=== PATIENT | male | born 1930 | race Caucasian/White ===

== ENCOUNTER 2016-11-23 09:01 | Inpatient (IN) ==
--- NOTE | 2016-11-23 09:10 | Emergency Department Report ---
Fever HPI - General Chief Complaint: Fever Stated Complaint: fever Time Seen by Provider: 11/23/16 09:10 Source: EMS Mode of arrival: EMS Limitations: altered mental status - History of Present Illness HPI Narrative: Patient is an 86-year-old male severe dementia. Patient brought to the ER for evaluation of fever, altered mental status. Patient began acting confused yesterday, today patient was known to be significantly altered, was noted to have a fever of 100.7. EMS was called, patient was brought to the ER for evaluation. Patient either very confused or significant dementia, unknown baseline at this time patient only states I don't know when asked any questions MD complaint: fever, malaise Temperature Source: oral - Related Data Home Medications Medication Instructions Recorded Confirmed Fluorouracil 5% Cream [Efudex 5% 1 applic TOP BID #40 gm 12/31/15 11/23/16 Cream] Previous Rx's Medication Instructions Recorded Acetaminophen Supp [Tylenol Supp] 650 mg GA Q5H PRN supp 11/30/16 Acetaminophen [Tylenol] 1,000 mg PO Q5H PRN tablet 11/30/16 Aspirin [ASA] 325 mg PO DAILY tablet 11/30/16 Atorvastatin [Lipitor] 40 mg PO HS tablet 11/30/16 Losartan [Cozaar] 50 mg PO DAILY tablet 11/30/16 Metoprolol Tartrate [Lopressor] 100 mg PO BIDWM tablet 11/30/16 Allergies Allergy/AdvReac Type Severity Reaction Status Date / Time No Known Allergies Allergy Unknown Unverified 11/23/16 09:04 Review of Systems Limitations: ROS unobtainable due to patient's medical condition (patient baseline dementia, with fever current response I don't know to every question) PFSH Patient Stated Medical History Cerebrovascular Accident Yes: previous "light stroke" 2010 Dementia Yes Cataracts Yes Cardiac Arrhythmia Yes Hypertension Yes Diabetes Mellitus Type 2 Yes Hx Incontinence Yes Hx Urinary Tract Infection Yes Physical Exam - General General appearance: alert, in no apparent distress - Eye Eye exam: Present: EOMI - ENT ENT exam: Present: normal oropharynx, mucous membranes dry. Absent: mucous membranes moist - Neck Neck exam: Present: trachea midline. Absent: tenderness - Chest Chest inspection: Present: symmetric chest wall rise. Absent: tenderness, rash - Respiratory Respiratory exam: Present: normal lung sounds bilaterally. Absent: respiratory distress, wheezes, stridor - Cardiovascular Cardiovascular exam: Present: regular rate, normal rhythm, normal heart sounds - Abdominal Exam Abdominal exam: Present: soft, normal bowel sounds. Absent: distention, tenderness - Back Exam Back exam: Present: full ROM - Skin Skin exam: Present: warm, dry - Neurological Exam Neurological exam: Present: alert, other (patient grossly normal, however significant dementia unknown baseline) Course Vital Signs Temperature 98.7 F 11/23/16 09:12 Pulse Rate 71 11/23/16 09:12 Respiratory Rate 20 11/23/16 09:12 Blood Pressure 198/76 H 11/23/16 09:12 Pulse Oximetry 98 11/23/16 09:12 Temperature 96.9 F 11/30/16 08:38 Pulse Rate 66 11/30/16 08:38 Respiratory Rate 16 11/30/16 08:38 Blood Pressure 157/78 H 11/30/16 08:38 Pulse Oximetry 96 11/30/16 08:38 Fever - Differential Diagnosis Likely: cellulitis, fever of unknown origin, gastroenteritis, community acquired pneumonia, pyelonephritis, sepsis, influenza - Medical Records Attestation: I reviewed the patient's medical records. - Lab Data Attestation: I reviewed the patient's lab results. Result diagrams: 11/30/16 06:31 11/30/16 06:31 Lab Results 11/23/16 11/23/16 11/23/16 Range/Units 09:39 09:39 09:40 WBC 11.7 H (4.5-11.0) T/MM3 RBC 5.03 (4.50-5.90) M/MM3 Hgb 14.4 (13.5-17.5) GM/DL Hct 44.8 (41-53) % MCV 89.1 (80-100) UM3 MCH 28.6 (26-34) UUG MCHC 32.1 (31-37) GM/DL RDW Std Deviation 44.2 (36.9-50.2) FL Plt Count 181 (130-400) T/MM3 MPV 9.9 (9.4-12.4) UM3 Immature Gran % (Auto) 0.1 (0.0-0.5) % Neut % (Auto) 76.4 H (33-66) % Lymph % (Auto) 13.2 L (23-45) % [facility] % (Auto) 8.7 (0-9.0) % Eos % (Auto) 1.3 (0-4) % Baso % (Auto) 0.3 (0-2) % Neut # 8.9 H (1.8-7.7) T/MM3 Lymph # 1.5 (1-4.8) T/MM3 [facility] # 1.0 H (0-0.8) T/MM3 Eos # 0.2 (0-0.5) T/MM3 Baso # 0.0 (0-0.2) T/MM3 Abs Immat Gran (auto) 0.01 (0.00-0.03) T/MM3 Turbidity < 20 (0-20) Sodium 147 H (134-144) MEQ/L Potassium 4.5 (3.6-5) MEQ/L Chloride 110 H (98-107) MEQ/L Carbon Dioxide 26 (22-30) MEQ/L Anion Gap 11 (5-15) MEQ/L BUN 24.0 H (9-20) MG/DL Creatinine 1.8 H (0.8-1.5) MG/DL GFR Calculation 36 BUN/Creatinine Ratio 13 (6-26) RATIO Glucose 149 H (75-110) MG/DL Glucometer (65-110) mg/dL Calculated Osmolality 289 H (261-280) MOSM/KG Calcium 8.9 (8.4-10.2) MG/DL Total Bilirubin 1.90 H (0.20-1.30) MG/DL Icterus Index < 2 (0-7) AST 25 (17-59) U/L ALT 27 (21-72) U/L Alkaline Phosphatase 52 (38-126) U/L Troponin I 0.072 (0-0.12) ng/ml Total Protein 7.4 (6.3-8.2) G/DL Albumin 3.8 (3.5-5.0) G/DL Globulin 3.6 (2.4-3.6) G/DL Albumin/Globulin Ratio 1.1 (1.1-2.2) RATIO Plasma Lactate 1.2 (0.6-2.2) MMOL/L Procalcitonin 0.21 NG/ML Specimen Hemolysis < 15 (0-25) Ur Collection Type Urine Color (YELLOW) Urine Clarity Urine pH (5.0-8.0) Ur Specific [place] (1.015-1.025) Urine Protein (NEGATIVE) Urine Glucose (UA) (NEGATIVE) Urine Ketones (NEGATIVE) Urine Occult Blood (NEGATIVE) Urine Nitrate (NEGATIVE) Urine Bilirubin (NEGATIVE) Urine Urobilinogen (NORMAL) EU/DL Ur Leukocyte Esterase (NEGATIVE) Urine RBC (0-3) /HPF Urine WBC (0-5) /HPF Amorphous Sediment Urine Bacteria (NEGATIVE) Ur Culture Indicated? 11/23/16 11/23/16 11/23/16 Range/Units 09:50 13:59 14:56 WBC (4.5-11.0) T/MM3 RBC (4.50-5.90) M/MM3 Hgb (13.5-17.5) GM/DL Hct (41-53) % MCV (80-100) UM3 MCH (26-34) UUG MCHC (31-37) GM/DL RDW Std Deviation (36.9-50.2) FL Plt Count (130-400) T/MM3 MPV (9.4-12.4) UM3 Immature Gran % (Auto) (0.0-0.5) % Neut % (Auto) (33-66) % Lymph % (Auto) (23-45) % [facility] % (Auto) (0-9.0) % Eos % (Auto) (0-4) % Baso % (Auto) (0-2) % Neut # (1.8-7.7) T/MM3 Lymph # (1-4.8) T/MM3 [facility] # (0-0.8) T/MM3 Eos # (0-0.5) T/MM3 Baso # (0-0.2) T/MM3 Abs Immat Gran (auto) (0.00-0.03) T/MM3 Turbidity (0-20) Sodium (134-144) MEQ/L Potassium (3.6-5) MEQ/L Chloride (98-107) MEQ/L Carbon Dioxide (22-30) MEQ/L Anion Gap (5-15) MEQ/L BUN (9-20) MG/DL Creatinine (0.8-1.5) MG/DL GFR Calculation BUN/Creatinine Ratio (6-26) RATIO Glucose (75-110) MG/DL Glucometer 128 (65-110) mg/dL Calculated Osmolality (261-280) MOSM/KG Calcium (8.4-10.2) MG/DL Total Bilirubin (0.20-1.30) MG/DL Icterus Index (0-7) AST (17-59) U/L ALT (21-72) U/L Alkaline Phosphatase (38-126) U/L Troponin I (0-0.12) ng/ml Total Protein (6.3-8.2) G/DL Albumin (3.5-5.0) G/DL Globulin (2.4-3.6) G/DL Albumin/Globulin Ratio (1.1-2.2) RATIO Plasma Lactate 1.9 (0.6-2.2) MMOL/L Procalcitonin NG/ML Specimen Hemolysis (0-25) Ur Collection Type Urine, catheter Urine Color Yellow (YELLOW) Urine Clarity Clear Urine pH 5.5 (5.0-8.0) Ur Specific [place] 1.025 (1.015-1.025) Urine Protein 1+ A (NEGATIVE) Urine Glucose (UA) Negative (NEGATIVE) Urine Ketones Negative (NEGATIVE) Urine Occult Blood 3+ A (NEGATIVE) Urine Nitrate Negative (NEGATIVE) Urine Bilirubin Negative (NEGATIVE) Urine Urobilinogen 0.2 (NORMAL) EU/DL Ur Leukocyte Esterase Negative (NEGATIVE) Urine RBC 20-30 H (0-3) /HPF Urine WBC None seen (0-5) /HPF Amorphous Sediment Moderate Urine Bacteria Trace H (NEGATIVE) Ur Culture Indicated? Cult not indicated 11/23/16 11/24/16 11/24/16 Range/Units 20:07 04:30 04:30 WBC 12.4 H (4.5-11.0) T/MM3 RBC 4.42 L (4.50-5.90) M/MM3 Hgb 12.7 L D (13.5-17.5) GM/DL Hct 39.6 L D (41-53) % MCV 89.6 (80-100) UM3 MCH 28.7 (26-34) UUG MCHC 32.1 (31-37) GM/DL RDW Std Deviation 42.6 (36.9-50.2) FL Plt Count 164 (130-400) T/MM3 MPV 10.2 (9.4-12.4) UM3 Immature Gran % (Auto) 0.2 (0.0-0.5) % Neut % (Auto) 78.6 H (33-66) % Lymph % (Auto) 12.6 L (23-45) % [facility] % (Auto) 7.8 (0-9.0) % Eos % (Auto) 0.6 (0-4) % Baso % (Auto) 0.2 (0-2) % Neut # 9.8 H (1.8-7.7) T/MM3 Lymph # 1.6 (1-4.8) T/MM3 [facility] # 1.0 H (0-0.8) T/MM3 Eos # 0.1 (0-0.5) T/MM3 Baso # 0.0 (0-0.2) T/MM3 Abs Immat Gran (auto) 0.02 (0.00-0.03) T/MM3 Turbidity < 20 (0-20) Sodium 140 D (134-144) MEQ/L Potassium 4.4 (3.6-5) MEQ/L Chloride 109 H (98-107) MEQ/L Carbon Dioxide 23 (22-30) MEQ/L Anion Gap 8 (5-15) MEQ/L BUN 20.0 (9-20) MG/DL Creatinine 1.5 D (0.8-1.5) MG/DL GFR Calculation 44 BUN/Creatinine Ratio 13 (6-26) RATIO Glucose 132 H (75-110) MG/DL Glucometer 129 (65-110) mg/dL Calculated Osmolality 274 (261-280) MOSM/KG Calcium 8.4 (8.4-10.2) MG/DL Total Bilirubin (0.20-1.30) MG/DL Icterus Index < 2 (0-7) AST (17-59) U/L ALT (21-72) U/L Alkaline Phosphatase (38-126) U/L Troponin I (0-0.12) ng/ml Total Protein (6.3-8.2) G/DL Albumin (3.5-5.0) G/DL Globulin (2.4-3.6) G/DL Albumin/Globulin Ratio (1.1-2.2) RATIO Plasma Lactate (0.6-2.2) MMOL/L Procalcitonin NG/ML Specimen Hemolysis < 15 (0-25) Ur Collection Type Urine Color (YELLOW) Urine Clarity Urine pH (5.0-8.0) Ur Specific [place] (1.015-1.025) Urine Protein (NEGATIVE) Urine Glucose (UA) (NEGATIVE) Urine Ketones (NEGATIVE) Urine Occult Blood (NEGATIVE) Urine Nitrate (NEGATIVE) Urine Bilirubin (NEGATIVE) Urine Urobilinogen (NORMAL) EU/DL Ur Leukocyte Esterase (NEGATIVE) Urine RBC (0-3) /HPF Urine WBC (0-5) /HPF Amorphous Sediment Urine Bacteria (NEGATIVE) Ur Culture Indicated? 11/24/16 11/24/16 11/24/16 Range/Units 06:02 10:46 14:52 WBC (4.5-11.0) T/MM3 RBC (4.50-5.90) M/MM3 Hgb (13.5-17.5) GM/DL Hct (41-53) % MCV (80-100) UM3 MCH (26-34) UUG MCHC (31-37) GM/DL RDW Std Deviation (36.9-50.2) FL Plt Count (130-400) T/MM3 MPV (9.4-12.4) UM3 Immature Gran % (Auto) (0.0-0.5) % Neut % (Auto) (33-66) % Lymph % (Auto) (23-45) % [facility] % (Auto) (0-9.0) % Eos % (Auto) (0-4) % Baso % (Auto) (0-2) % Neut # (1.8-7.7) T/MM3 Lymph # (1-4.8) T/MM3 [facility] # (0-0.8) T/MM3 Eos # (0-0.5) T/MM3 Baso # (0-0.2) T/MM3 Abs Immat Gran (auto) (0.00-0.03) T/MM3 Turbidity (0-20) Sodium (134-144) MEQ/L Potassium (3.6-5) MEQ/L Chloride (98-107) MEQ/L Carbon Dioxide (22-30) MEQ/L Anion Gap (5-15) MEQ/L BUN (9-20) MG/DL Creatinine (0.8-1.5) MG/DL GFR Calculation BUN/Creatinine Ratio (6-26) RATIO Glucose (75-110) MG/DL Glucometer 131 108 166 (65-110) mg/dL Calculated Osmolality (261-280) MOSM/KG Calcium (8.4-10.2) MG/DL Total Bilirubin (0.20-1.30) MG/DL Icterus Index (0-7) AST (17-59) U/L ALT (21-72) U/L Alkaline Phosphatase (38-126) U/L Troponin I (0-0.12) ng/ml Total Protein (6.3-8.2) G/DL Albumin (3.5-5.0) G/DL Globulin (2.4-3.6) G/DL Albumin/Globulin Ratio (1.1-2.2) RATIO Plasma Lactate (0.6-2.2) MMOL/L Procalcitonin NG/ML Specimen Hemolysis (0-25) Ur Collection Type Urine Color (YELLOW) Urine Clarity Urine pH (5.0-8.0) Ur Specific [place] (1.015-1.025) Urine Protein (NEGATIVE) Urine Glucose (UA) (NEGATIVE) Urine Ketones (NEGATIVE) Urine Occult Blood (NEGATIVE) Urine Nitrate (NEGATIVE) Urine Bilirubin (NEGATIVE) Urine Urobilinogen (NORMAL) EU/DL Ur Leukocyte Esterase (NEGATIVE) Urine RBC (0-3) /HPF Urine WBC (0-5) /HPF Amorphous Sediment Urine Bacteria (NEGATIVE) Ur Culture Indicated? - Radiology Data Attestation: I reviewed the patient's radiology results. - EKG Data EKG #1 EKG attestation: Yes: I reviewed and interpreted this EKG. EKG shows normal: sinus rhythm Rate: normal Rhythm: NSR [place]/QRS: normal Heart block present: 1st Degree Interpretation: no acute changes Disposition Clinical Impression: CVA (cerebral vascular accident) Qualifiers: CVA mechanism: occlusion Precerebral and cerebral artery: middle cerebral artery Laterality of affected vessel: right Qualified Code(s): I63.511 - Cerebral infarction due to unspecified occlusion or stenosis of right middle cerebral artery Disposition: [facility] [place] Condition: Stable - Seen By: physician
[2016-11-23] MEDS ORDERED: CEFEPIME 1 GM in NS 100 ML IV ONE (09:12)
[2016-11-23] MEDS ORDERED: NS 1,000 ML IV ONE (09:12)
--- NOTE | 2016-11-23 10:29 | XRay Report ---
EXAM: XR chest 1V LOCATION OF DICTATION: [place] HISTORY: fever, confusion, rule out sepsis COMPARISON: No prior studies available for comparison. FINDINGS: The heart size is normal. Tortuous and ectatic appearing thoracic aorta. The mediastinal configuration is within normal limits. Limited depth of inspiration with elevation of the left hemidiaphragm. There are no consolidating opacities or pleural effusions. There is no pneumothorax. The osseous structures are within normal limits for the patient's age. IMPRESSION: 1. Heart size is within normal limits. 2. Limited depth of inspiration with basilar atelectasis. No consolidating opacities. .
--- NOTE | 2016-11-23 10:37 | CT Scan Report ---
EXAM: CT head/brain wo con LOCATION OF DICTATION: [place] HISTORY: acutely altered mental status COMPARISON: Compared to the prior CT head dated August 22, 2009. TECHNIQUE: Axial CT images through the head were performed without contrast. Iterative Reconstruction dose reducing technique was utilized. FINDINGS: The ventricles and sulci are prominent compatible with age-related atrophy. Encephalomalacia within the right occipital lobe compatible with chronic cerebrovascular accident as demonstrated in the CT head and August 2009. Encephalomalacia within the left cerebellar hemisphere suggesting chronic ischemic insult as well. There is area of low attenuation within the right parietal cortex suggesting subacute to chronic infarct. Slightly hyperdense right MCA could indicate underlying thrombus. There is a prominent Virchow-Bebeto space in the left basal ganglia region. There is no significant midline shift or mass effect. Basilar cisterns are patent. The paranasal sinuses and mastoid air are clear. Globes and orbits are normal. No intraparenchymal or extra-axial hemorrhage. IMPRESSION: 1. Encephalomalacia about the right occipital lobe compatible chronic cerebrovascular accident. Encephalomalacia within the left cerebellar hemisphere also suggestive of a chronic cerebrovascular accident. 2. Area of low-attenuation with the right parietal cortex may indicate subacute to chronic infarct. Clinical correlation recommended. 3. Slightly hyperdense right MCA could indicate underlying thrombus. .
--- NOTE | 2016-11-23 12:16 | Magnetic Resonance Report ---
EXAM: MR head/brain wo con LOCATION OF DICTATION: [place] HISTORY: question right parietal stroke COMPARISON: No prior studies available for comparison. TECHNIQUE: Multiplanar, multisequence, MR imaging of the head with and without contrast was acquired. Contrast: 15 mL of Multihance FINDINGS: The ventricles and sulci are prominent compatible with age-related cerebral atrophy. There is a large area of restricted diffusion within the right parietal cortex compatible with a acute to subacute right MCA distribution infarct. Gradient echo images demonstrate areas of susceptibility artifact suggestive of hemosiderin. In addition there are a few small foci demonstrating restricted diffusion within the right basal ganglia region and the left posterior frontal subcortical white matter suggesting shower emboli. Flow voids are maintained within the major dural venous sinuses and [place] without obvious right MCA distribution thrombus. Impression: 1. Large area of restricted diffusion within the right parietal cortex MCA distribution compatible with acute/subacute infarct. There are few areas of susceptibility artifact/hemosiderin suggesting small hemorrhagic components. 2. There are a few small foci of restricted diffusion compatible with acute infarcts within the right basal ganglia and left posterior frontal subcortical white matter suggesting shower emboli. 3. Age-related atrophy. 4. Flow voids are maintained in the [place]. No evidence for right MCA distribution thrombus. IMPRESSION: Unremarkable MRI of the head for the patient's age with and without contrast. .
--- NOTE | 2016-11-23 13:40 | History & Physical Report ---
<Kymberly Venegas V - Last Filed: 11/23/16 13:36> History of Present Illness Date: 11/23/16 Chief complaint: CVA HPI: Patient is a 86 yr old male who was brought to the emergency room today for acute evaluation of altered mentation. Patient has a known history of significant dementia. However, he is does reside at home with his . His reported that he started to become increasingly confused yesterday morning at approximately 3 a.m. This confusion continued into today, at which time she contacted her children further assistance. Unable to get patient to obey commands or stand, so they contacted EMS and patient was brought to the emergency room for further evaluation and treatment. Basic laboratory studies were obtained as patient's was concerned about a possible fever. Patient's white count was found to be 11.7, hemoglobin 14.4, hematocrit 44.8, platelet count 181, neutrophils 76%. Chemistry panel reviewed. Sodium is elevated at 147 , potassium 4.5, BUN 24, creatinine 1.8, glucose 149. Total bilirubin 1.9. Troponin 0.072, venous lactate 1.2, pro calcitonin 0.21. A catheterized urine sample was obtained showing 1+ protein, 3+ blood, 20-30 RBCs with trace bacteria. Max temperature in the emergency room was 100.1, heart rate in the 60s. Patient has been hypertensive, 170s-190s systolic. A chest x-ray was obtained. No acute cardiopulmonary findings. Initially a CT scan of the brain is obtained that does reveal encephalomalacia in the right occipital lobe, likely chronic from prior ischemic event. Questionable area in the right MCA that his concern for thrombus. An MRI of the brain was then obtained that did reveal a large area of restricted diffusion in the right MCA, likely representing an acute infarct. There are also multiple small areas of acute infarcts. Given acute mental status, accompanied with weakness and findings of cerebral infarct. The hospitalist services were contacted and accepted patient for outpatient admission for further evaluation and treatment. It is expected that his stay will be less than 2 overnights. Patient is seen while in the emergency room with and daughters at his bedside. He is living with his eyes closed. He will answer verbally. When called by name. He will also answer questions with yes and no or I don't know however, will not follow specific commands. When asked to open his eyes. He states "no". It is difficult evaluate if this is acute altered mentation versus chronic dementia. Just in great detail with family at the bedside regarding their wishes for ongoing care. They all verbalized patient is a do not resuscitate. Discussed plan of care. Did discuss events or activities with family and they wish for patient to be a do not resuscitate Review of Systems ROS unobtainable: due to mental status PFSH Dementia Type II diabetes, next line, hypertension Hx CVA Cataracts. History of urinary incontinence Surgical History: Bilateral carpal tunnel release-1996. Skin cancer removal- 2005. 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 Skin cancer removals-2007, 2008. Tonsillectomy. Left cataract extraction with lens in [place]-2008. Colonoscopy-2004, 2006, 2007 Family History: Father-diabetes, heart disease Mother-breast cancer - Social History Smoking status: Never smoker Substance use type: does not use Alcohol intake frequency: does not drink Household members: spouse Current residence: Apartment/Private Home Social history: PCP Dr Lebron Medications Home Medications Medication Instructions Recorded Confirmed Type Losartan Potassium [Cozaar] 100 mg PO DAILY #0 11/24/09 11/23/16 History Metoprolol Succinate 200 mg PO DAILY #0 11/24/09 11/23/16 History Fluorouracil 5% Cream [Efudex 5% 1 applic TOP BID #40 gm 12/31/15 11/23/16 History Cream] Allergies Allergy/AdvReac Type Severity Reaction Status Date / Time No Known Allergies Allergy Unknown Unverified 11/23/16 09:04 Exam Vital Signs: Temperature 98.5 F 11/23/16 12:45 Pulse Rate 65 11/23/16 13:20 Respiratory Rate 20 11/23/16 12:45 Blood Pressure 185/71 H 11/23/16 13:20 Pulse Oximetry 95 11/23/16 13:20 Oxygen Delivery Method Room Air Height: 1.7 m Weight: 67.3 kg - Constitutional Present: no acute distress, well nourished, well developed - Routine HEENT Exam ENT: Present: mucous membranes moist, dentition normal - Routine Neck Exam Present: full ROM - Routine Respiratory Exam Present: CTA bilaterally. Absent: wheezes - Routine Cardiovascular Exam Present: RRR, S1, S2, no murmur. Absent: murmur - Routine Abdominal Exam Present: soft, normoactive bowel sounds, non distended. Absent: tenderness - Routine Extremities Exam Present: normal capillary refill - Routine Skin Exam Present: intact, dry, warm - Routine Neurological Exam Present: alert, altered mental status Will not follow commands of Neurologic exam - Routine Psychiatric Exam Present: cooperative, unable to assess Results - Labs CBC & Chem 7: 11/23/16 09:39 11/23/16 09:40 Assessment and Plan (1) CVA (cerebral vascular accident) Current visit: Yes Status: Acute (2) Mental status change Current visit: Yes Status: Acute Assessment and Plan: Impression Acute CVA Altered mentation Hypernatremia Mild leukocytosis Elevated bilirubin Hypertension Type II diabetes History of CVA Cataracts Urinary incontinence Plan Patient to outpatient observation under the care of Dr. Shay for acute CVA and altered mentation. Place consultation with speech therapy to evaluate swallow to rule out dysphasia. Consultation for PT and OT to evaluate patients strength, weakness and deficits. Patient does reside at home and normally walks with a walker. Mild leukocytosis. No evidence of urinary tract infection or pneumonia. Will continue to monitor for evidence of acute process. Leukocytosis may be stress- induced. Noted creatinine to be 1.8, however, this does appear to be chronic. Last creatinine from 2016 was 1.8 Will give 1/2 NS at 100 ml/hr for gentle hydration Did discuss with patient's family. Patient may require further rehabilitation including penitentiary, IRU or group home placement. Depending on his ongoing deficits. Family does verify again, the patient is a do not resuscitate and this order is written. Will discuss further orders and plan of care with attending, Dr. Shay. At time of discharge medical care will return to primary care provider, Dr. Lebron Hospital Course Summary Disclaimer: The visit summary below is not to be considered part of the above Progress Note. Hospital Course: 11/23/16- Admission Impression Acute CVA Altered mentation Hypernatremia Mild leukocytosis Elevated bilirubin Hypertension Type II diabetes History of CVA Cataracts Urinary incontinence Plan Patient to outpatient observation under the care of Dr. Shay for acute CVA and altered mentation. Place consultation with speech therapy to evaluate swallow to rule out dysphasia. Consultation for PT and OT to evaluate patients strength, weakness and deficits. Patient does reside at home and normally walks with a walker. Mild leukocytosis. No evidence of urinary tract infection or pneumonia. Will continue to monitor for evidence of acute process. Leukocytosis may be stress- induced. Noted creatinine to be 1.8, however, this does appear to be chronic. Last creatinine from 2015 was 1.8 Will give 1/2 NS at 100 ml/hr for gentle hydration Did discuss with patient's family. Patient may require further rehabilitation including penitentiary, IRU or group home placement. Depending on his ongoing deficits. Family does verify again, the patient is a do not resuscitate and this order is written. Will discuss further orders and plan of care with attending, Dr. Shay. At time of discharge medical care will return to primary care provider, Dr. Lebron <Belle Shay - Last Filed: 11/23/16 18:03> History of Present Illness Date: 11/23/16 [facility] Patient Stated Medical History Cerebrovascular Accident Yes: previous "light stroke" 2009 Dementia Yes Cataracts Yes Cardiac Arrhythmia Yes Hypertension Yes Diabetes Mellitus Type 2 Yes Hx Incontinence Yes Hx Urinary Tract Infection Yes Exam Vital Signs: Temperature 99.1 F 11/23/16 16:00 Pulse Rate 69 11/23/16 16:00 Respiratory Rate 20 11/23/16 16:00 Blood Pressure 173/70 H 11/23/16 16:00 Pulse Oximetry 96 11/23/16 16:00 Oxygen Delivery Method Room Air Height: 5 ft 7 in Weight: 151 lb 0.266 oz Results - Labs CBC & Chem 7: 11/23/16 09:39 11/23/16 09:40 Assessment and Plan (1) CVA (cerebral vascular accident) Current visit: Yes Status: Acute (2) Mental status change Current visit: Yes Status: Acute Assessment and Plan: I have independently evaluated and examined this patient. I reviewed the chart, the patient's history, and the PACKING ROOM WORKER/PA's documented findings as above. We discussed and formulated the assessment and plan as above with additions as below. Informant is patient's family who is at his bedside, patient's chart, patient is able to answer a few questions but is not a reliable historian. The patient is an 86-year-old white male as outlined above with his reports that she woke up at 3:30 in the morning on Wednesday and noted that he was talking. She thought maybe he was having a bad dream. However he continued to remain confused, she noticed he was having difficulty eating, it should be noted he is left-handed. He usually is able to feed himself fairly well. Eventually she contacted her family, because the patient was unable to stand or follow commands he was brought in by EMS today. After an extensive evaluation in the emergency department, including a sepsis workup with blood cultures obtained in light of his leukocytosis. He underwent an MRI of the head which shows a large area of restricted diffusion within the right parietal cortex MCA distribution compatible with acute/subacute infarct. There were a few areas of susceptibility artifact/hemosiderin suggesting small hemorrhagic components. Are a few small foci of restricted diffusion compatible with acute infarcts within the right basal ganglia and left posterior frontal subcortical white matter suggesting showering emboli. The patient was admitted for outpatient observation due to acute CVA and altered mentation. Review of system: Difficult to obtain from the patient. The does describe he has dependent rubor when he is dangling his feet, perhaps worse in his left leg that has been going on for the recent past. In general, the patient awakens easily, and attempts to answer questions but his answers are somewhat vague. He is cooperative with exam, and in no respiratory distress. HEENT: Head is atraumatic, normocephalic, multiple healing skin cancers noted , left conjunctival erythema and injection with some distortion of the left lower lid, no oral thrush, mucous membranes dry, his lips are cracked and fissured. Lungs: Clear to auscultation CV: Regular rate and rhythm a blowing holosystolic murmur Abdomen: Soft, nontender, bowel sounds are present, there is no guarding no rebound. He does have a reducible incisional hernia to the right of his midline incision. She has strong bounding bilateral femoral pulses. Extremities: No edema, the left leg is mottled, with decreased dorsalis pedis pulse, purple changes to the nails,. His right leg is warm and dry with good palpable pulses and flare refill less than 2 seconds Skin: no sign of rash Neuro: Patient is resting quietly, arouses to questions but unable to follow any commands Impression: Acute CVA involving the right parietal cortex with small acute infarcts within the right basal ganglia and left posterior frontal subcortical white matter- with his murmur one would be concerned about endocarditis-blood cultures are pending at this time. If the blood cultures become positive will address further evaluation with the family. He did receive 1 dose of cefepime in the emergency department today. Plan as outlined above. Discussed DO NOT RESUSCITATE status with the family and they confirmed he is a DO NOT RESUSCITATE Hospital Course Summary Disclaimer: The visit summary below is not to be considered part of the above Progress Note.
[2016-11-23 14:04] VITALS: BMI 23.6
[2016-11-23] MEDS: 1/2 NS 1,000 ML IV SCH (14:26)
[2016-11-23] MEDS: SALINE FLUSH 10ml SYRINGE IVF PRN (14:27)
[2016-11-23] MEDS: --POM--LOSARTAN 100 MG TABLET PO SCH (16:36)
[2016-11-23] MEDS: METOPROLOL SUCCINATE (XL) 100mg TABLET PO SCH (16:37)
[2016-11-24] MEDS: 1/2 NS 1,000 ML IV SCH ×3 (00:33→20:45)
[2016-11-24] MEDS: --POM--LOSARTAN 100 MG TABLET PO SCH (12:24)
[2016-11-24] MEDS: METOPROLOL SUCCINATE (XL) 100mg TABLET PO SCH (12:25)
--- NOTE | 2016-11-24 13:54 | Progress Note ---
<Kymberly Venegas V - Last Filed: 11/24/16 13:48> Subjective: Mr Marlow is seen this morning while sleeping in the chair. He is resting with eyes closed and will not open them for examination. When asked questions. He will answer intermittently yes or no, however, not consistently. He does not appear to be in any acute distress. The pressures remain 170s systolic. Objective Vital signs: Temperature 96 F L 11/24/16 08:00 Pulse Rate 57 L 11/24/16 08:00 Respiratory Rate 16 11/23/16 23:58 Blood Pressure 171/66 H 11/24/16 08:00 Pulse Oximetry 96 11/24/16 08:00 Oxygen Delivery Method Room Air Height: 5 ft 7 in Weight: 151 lb 0.266 oz Body Mass Index: 23.6 - Constitutional Present: no acute distress, well nourished, well developed - Routine HEENT Exam Eye: Present: EOMI ENT: Present: mucous membranes moist, dentition normal - Routine Respiratory Exam Present: CTA bilaterally. Absent: wheezes - Routine Cardiovascular Exam Present: RRR, S1, S2, murmur - Routine Abdominal Exam Present: soft, normoactive bowel sounds, non distended. Absent: tenderness - Routine Extremities Exam Present: normal capillary refill - Routine Skin Exam Present: dry, warm - Routine Neurological Exam Present: altered mental status - Routine Lymphatic Exam Lymphatic: Absent: adenopathy - Routine Psychiatric Exam Present: normal affect Results - Labs CBC & Chem 7: 11/24/16 04:30 11/24/16 04:30 Assessment and Plan (1) CVA (cerebral vascular accident) Current visit: Yes Status: Acute (2) Mental status change Current visit: Yes Status: Acute Assessment and Plan: 11/24/16 Blood pressure remains mildly elevated in the 170's. Generally goal is to keep above 150. Will discuss with attending regarding adding Norvasc or increasing current regimen Blood cultures remain negative. Mild leukocytosis without any SIRS criteria. Awaiting for evaluation with therapy. Concerned that patient will not be able to return home Consult placed to IRU. Otherwise may need to consider snf or SNU placement Discussed with CM Sepsis Assessment - Evaluation Sepsis screening result: No Definite Risk Hospital Course Summary Disclaimer: The visit summary below is not to be considered part of the above Progress Note. Hospital Course: 11/23/16- Admission Impression Acute CVA Altered mentation Hypernatremia Mild leukocytosis Elevated bilirubin Hypertension Type II diabetes History of CVA Cataracts Urinary incontinence Plan Patient to outpatient observation under the care of Dr. Shay for acute CVA and altered mentation. Place consultation with speech therapy to evaluate swallow to rule out dysphasia. Consultation for PT and OT to evaluate patients strength, weakness and deficits. Patient does reside at home and normally walks with a walker. Mild leukocytosis. No evidence of urinary tract infection or pneumonia. Will continue to monitor for evidence of acute process. Leukocytosis may be stress- induced. Noted creatinine to be 1.8, however, this does appear to be chronic. Last creatinine from 2016 was 1.8 Will give 1/2 NS at 100 ml/hr for gentle hydration Did discuss with patient's family. Patient may require further rehabilitation including snf, IRU or snf placement. Depending on his ongoing deficits. Family does verify again, the patient is a do not resuscitate and this order is written. Will discuss further orders and plan of care with attending, Dr. Shay. At time of discharge medical care will return to primary care provider, Dr. Lebron 11/24/16 Blood pressure remains mildly elevated in the 170's. Generally goal is to keep above 150. Will discuss with attending regarding adding Norvasc or increasing current regimen Blood cultures remain negative. Mild leukocytosis without any SIRS criteria. Awaiting for evaluation with therapy. Concerned that patient will not be able to return home Consult placed to IRU. Otherwise may need to consider snf or SNU placement Discussed with CM <Belle Shay - Last Filed: 11/24/16 15:35> Objective Vital signs: Temperature 96 F L 11/24/16 08:00 Pulse Rate 60 11/24/16 14:10 Respiratory Rate 16 11/23/16 23:58 Blood Pressure 135/53 11/24/16 14:10 Pulse Oximetry 96 11/24/16 08:00 Results - Labs CBC & Chem 7: 11/24/16 04:30 11/24/16 04:30 Assessment and Plan (1) CVA (cerebral vascular accident) Current visit: Yes Status: Acute (2) Mental status change Current visit: Yes Status: Acute Assessment and Plan: I have independently evaluated and examined this patient. I reviewed the chart, the patient's history, and the SPORTS COORDINATOR/PA's documented findings as above. We discussed and formulated the assessment and plan as above with additions as below. The patient was able to open his eyes and respond to questions today. In general, the patient is alert and , cooperative with exam, and in no respiratory distress. HEENT: Head is atraumatic, normocephalic, no conjunctival petechiae, no oral thrush, mucous membranes are moist and pink. Lungs: Clear to auscultation without wheezes, crackles or rhonchi CV: Regular rate and rhythm with systolic murmur Abdomen: Soft, nontender, bowel sounds are present, there is no guarding no rebound. Extremities: No clubbing, no cyanosis, no edema. Left foot is slightly mottled diminished pulse Skin: Warm and dry no sign of rash Neuro: Patient opens eye, is unable to follow commands Repeat blood pressure after taking his meds as 135/53-will continue his home blood pressure meds Discussed with case management manager at the patient is being evaluated for IRU today Discussed with patient's and daughter Hospital Course Summary Disclaimer: The visit summary below is not to be considered part of the above Progress Note.
[2016-11-25] MEDS: 1/2 NS 1,000 ML IV SCH ×3 (07:14→17:46)
[2016-11-25] MEDS: --POM--LOSARTAN 100 MG TABLET PO SCH (09:16)
[2016-11-25] MEDS: METOPROLOL SUCCINATE (XL) 100mg TABLET PO SCH (09:16)
--- NOTE | 2016-11-25 12:22 | Progress Note ---
Subjective: The patient was seen in his room earlier this morning. At that time no family was present. He would respond to voice and stated he felt okay. He opened his mouth on command. He would not open his eyes when requested to do so. He could not answer any other questions for me. His nurse stated that they had a hard time getting him to take his pills or eat this morning but a family member was able to get him to take his pills and eat a few bites of food and a couple of drinks. When I returned later this morning the patient's was present and the speech therapist was present. The patient was refusing to take anything orally by the speech therapist. The patient's eyes were still closed and he was sitting up in his chair and appeared comfortable. He was later undergoing occupational therapy but continued to keep his eyes closed. Objective Vital signs: Temperature 99.0 F 11/25/16 08:00 Pulse Rate 52 L 11/25/16 11:23 Respiratory Rate 18 11/25/16 08:00 Blood Pressure 160/50 H 11/25/16 09:14 Pulse Oximetry 99 11/25/16 08:00 Oxygen Delivery Method Room Air Weight: 71.7 kg - Constitutional Comments: I&O 2965/965 Telemetry shows sinus rhythm with mild bradycardia and heart rate in the 50s. Telemetry initiated today. GEN-sleeping upright in a chair. Response to verbal stimuli. No agitation HEENT-the patient keeps his eyes closed and will not open them to command and will not allow them to be opened passively. Oropharynx is moist CV-regular rate and rhythm with a loud 4/6 systolic murmur CHEST-clear to auscultation bilaterally ABD-soft, nontender, he has a reducible large abdominal wall hernia that is nontender, positive bowel sounds -Damon in place with fair urine output EXT-SCDs on, mild erythema to the bilateral shins, trace edema NEURO-squeezes both hands on command with strength of 4+ over 5 bilaterally. The patient will not move his legs on command SKIN-warm and dry. No rashes. Mild erythema to the bilateral shins likely chronic Results - Labs CBC & Chem 7: 11/24/16 04:30 11/24/16 04:30 Assessment and Plan (1) CVA (cerebral vascular accident) Current visit: Yes Status: Acute (2) Mental status change Current visit: Yes Status: Acute Assessment and Plan: Dr. Monreal-11/25/2016 Large right parietal ischemic CVA with possible small hemorrhagic component. Few small scattered acute ischemic strokes in the right basal ganglia and left posterior frontal subcortical white matter suggesting shower emboli Dementia Diabetes Poor by mouth intake since admission Dysphagia Hypertension Chronic kidney disease Low-grade fever (blood cultures negative 2 days, UA negative on admission, and chest x-ray without consolidation.) Bibasilar atelectasis on admission chest x-ray Plan I talked to the patient's and one of his daughters here in the hospital and spoke to another daughter by phone. I updated them on the patient's condition. I discussed current options for workup of his stroke. They're not wanting aggressive care but are in agreement with carotid Dopplers and echocardiogram. We'll start aspirin and Lipitor. The patient apparently had been on warfarin in the past but it was discontinued sometime last year. He may be a candidate for resuming warfarin for his acute embolic appearing stroke. Will await echocardiogram and carotid Dopplers. Usually one would wait at least 10 days to start Coumadin after a large stroke if it is indicated. My other concern is that the patient's by mouth intake is very poor and he is requiring IV fluids for hydration. Family would like to continue with IV fluids while we continue supportive care and try to encourage by mouth intake. If over the next couple of days oral intake is not improving then we will need to discuss further options. Monitor on telemetry. EDITH Damon. It appears this was placed in the emergency room. I cannot find any notes indicating urinary retention. We'll check a CBC and basic metabolic profile today and tomorrow. Neuro checks every 8 hours Patient was reportedly not a candidate for inpatient rehabilitation. Family would like him to go to intermediate if he improves over the next couple of days. Greater than 1 hour of time spent seeing and evaluating the patient, reviewing the chart, talking with family and coordinating the care plan. Sepsis Assessment - Evaluation Sepsis screening result: No Definite Risk Hospital Course Summary Disclaimer: The visit summary below is not to be considered part of the above Progress Note. Hospital Course: 11/23/16- Admission Impression Acute CVA Altered mentation Hypernatremia Mild leukocytosis Elevated bilirubin Hypertension Type II diabetes History of CVA Cataracts Urinary incontinence Plan Patient to outpatient observation under the care of Dr. Shay for acute CVA and altered mentation. Place consultation with speech therapy to evaluate swallow to rule out dysphasia. Consultation for PT and OT to evaluate patients strength, weakness and deficits. Patient does reside at home and normally walks with a walker. Mild leukocytosis. No evidence of urinary tract infection or pneumonia. Will continue to monitor for evidence of acute process. Leukocytosis may be stress- induced. Noted creatinine to be 1.8, however, this does appear to be chronic. Last creatinine from 2016 was 1.8 Will give 1/2 NS at 100 ml/hr for gentle hydration Did discuss with patient's family. Patient may require further rehabilitation including intermediate, IRU or fpc placement. Depending on his ongoing deficits. Family does verify again, the patient is a do not resuscitate and this order is written. Will discuss further orders and plan of care with attending, Dr. Shay. At time of discharge medical care will return to primary care provider, Dr. Lebron 11/24/16 Blood pressure remains mildly elevated in the 170's. Generally goal is to keep above 150. Will discuss with attending regarding adding Norvasc or increasing current regimen Blood cultures remain negative. Mild leukocytosis without any SIRS criteria. Awaiting for evaluation with therapy. Concerned that patient will not be able to return home Consult placed to IRU. Otherwise may need to consider fpc or SNU placement Discussed with CM 11/24/2016 I have independently evaluated and examined this patient. I reviewed the chart, the patient's history, and the REHAB AIDE/PA's documented findings as above. We discussed and formulated the assessment and plan as above with additions as below. The patient was able to open his eyes and respond to questions today. In general, the patient is alert and , cooperative with exam, and in no respiratory distress. HEENT: Head is atraumatic, normocephalic, no conjunctival petechiae, no oral thrush, mucous membranes are moist and pink. Lungs: Clear to auscultation without wheezes, crackles or rhonchi CV: Regular rate and rhythm with systolic murmur Abdomen: Soft, nontender, bowel sounds are present, there is no guarding no rebound. Extremities: No clubbing, no cyanosis, no edema. Left foot is slightly mottled diminished pulse Skin: Warm and dry no sign of rash Neuro: Patient opens eye, is unable to follow commands Repeat blood pressure after taking his meds as 135/53-will continue his home blood pressure meds Discussed with renal case manager at the patient is being evaluated for IRU today Discussed with patient's and daughter
[2016-11-25] MEDS: ATORVASTATIN 40 MG TABLET PO SCH ×3 (13:27→23:21)
[2016-11-25] MEDS: ASPIRIN 325 MG TABLET PO SCH (13:27)
--- NOTE | 2016-11-25 14:13 | Ultrasound Report ---
Indication: bilateral ischemic cva PROCEDURE: US carotid doppler BI: Encounter: Initial Comparison: None Technique: Duplex interrogation of the sonographically accessible carotid vertebral arteries was performed. With grayscale and color flow imaging, mild intimal thickening and plaque formation is seen. On the right, the ICA/CCA ratio is 0.7 with a maximum peak systolic velocity of 78 cm/s. Diastolic velocities are under 10 cm/s. On the left, the IC/CC ratio is 0.7. Maximum peak systolic velocity of the left internal carotid artery is 90 cm/s although does have a high resistive pattern upon spectral analysis. Mild spectral broadening. Antegrade vertebral artery flow on the right. Left vertebral artery not sonographically accessible. There is question of some flow reversal the common carotid arteries but this is not definitive. Impression: 1. ICA/CCA ratios another Doppler evidence does not demonstrate evidence of hemodynamic significant stenosis. 2. High resistive waveforms of the left internal carotid artery of indeterminate significance. 3. Antegrade vertebral flow on the right; the left is not evaluated. Recommendation: CT angiography of the neck. .
[2016-11-26] MEDS: 1/2 NS 1,000 ML IV SCH ×3 (06:44→21:21)
[2016-11-26] MEDS ORDERED: 1/2 NS 1,000 ML IV SCH (07:26)
[2016-11-26] MEDS: METOPROLOL SUCCINATE (XL) 100mg TABLET PO SCH (11:43)
[2016-11-26] MEDS: ASPIRIN 325 MG TABLET PO SCH ×2 (11:43→12:12)
[2016-11-26] MEDS: --POM--LOSARTAN 100 MG TABLET PO SCH (11:43)
[2016-11-26] MEDS: CEFTRIAXONE 1 G in NS 100 ML IV SCH (15:02)
--- NOTE | 2016-11-26 15:45 | Progress Note ---
Subjective: The patient was seen today in his room accompanied by his , daughter and one granddaughter. He is sitting in a chair with his eyes closed. He occasionally will make a verbal response such as yes or no, but for the most part does not respond to questions. He keeps his eyes closed and does not open them on request. He does not follow any commands. He does not appear to be in distress. He is eating very poorly, only a few bites this morning with his medications. He still has his Damon in place. His states that last night before she left he had his eyes open and had a conversation with her. He states he asked where everybody went and asked what was going on. He has had some low- grade fevers off and on. Objective Vital signs: Temperature 97.7 F 11/26/16 09:38 Pulse Rate 93 11/26/16 09:38 Respiratory Rate 20 11/26/16 09:38 Blood Pressure 184/52 H 11/26/16 09:38 Pulse Oximetry 93 11/26/16 09:38 Oxygen Delivery Method Room Air Weight: 70.2 kg - Constitutional Comments: GEN-minimally responsive, sitting up in a chair, no acute distress HEENT-eyes are closed and he will not allow me to open them, oropharynx is moist NECK-supple CV-regular rate and rhythm CHEST-clear to auscultation bilaterally ABD-soft, nontender with positive bowel sounds -Damon in place with good urine output EXT-no edema, feet are cold to touch but pulses are present NEURO-patient is minimally responsive, overall, about the same as yesterday SKIN-skin is warm except for feet which are cool to touch Results - Labs CBC & Chem 7: 11/26/16 04:39 11/26/16 04:39 Microbiology Results: Microbiology 11/26/16 13:56 Peripheral/Iv Start Blood Culture - Preliminary Culture Initiated - Results Pending 11/26/16 13:31 Peripheral/Iv Start Blood Culture - Preliminary Culture Initiated - Results Pending - Imaging and Cardiology Chest x-ray Status: image reviewed by me Additional comments: Chest x-ray today on my read shows no significant change from 11/23/2016. Poor inspiration and basilar atelectasis Carotid Dopplers Impression: 1. ICA/CCA ratios another Doppler evidence does not demonstrate evidence of hemodynamic significant stenosis. 2. High resistive waveforms of the left internal carotid artery of indeterminate significance. 3. Antegrade vertebral flow on the right; the left is not evaluated. Recommendation: CT angiography of the neck. Assessment and Plan (1) CVA (cerebral vascular accident) Current visit: Yes Status: Acute (2) Mental status change Current visit: Yes Status: Acute Assessment and Plan: Dr. Monreal-11/26/2016 Impression Large right parietal ischemic CVA with possible small hemorrhagic component. Few small scattered acute ischemic strokes in the right basal ganglia and left posterior frontal subcortical white matter suggesting shower emboli Low-grade fever with mild leukocytosis -white count remains mildly elevated without significant immature white cells. Urinalysis was repeated and shows no signs of infection. Blood cultures were negative after 3 days and blood cultures were repeated today 2. Chest x-ray on my read shows no obvious infiltrates but will await radiology determination. Rocephin 1 g IV daily started empirically to see if his confusion will improve with treatment of possible infection Loud systolic murmur -echocardiogram is pending Dementia Diabetes Poor by mouth intake since admission Dysphagia Hypertension Chronic kidney disease-mild increasing creatinine after restarting losartan Abnormal carotid Dopplers as above-CTA for further evaluation recommended by radiology, but family does not want this procedure at this time Plan Regarding acute bilateral strokes, possibly embolic we'll continue on aspirin and statin for now. Echocardiogram is pending. Family does not want to pursue abnormalities seen on carotid Dopplers at this time. Regarding altered mental status, family would like to continue supportive care including IV fluids at this time and see if the patient improves. Regarding low-grade fever and elevated white count, uncertain if he has an infection versus aspiration or atelectasis contributing to his fever. Blood cultures were repeated and Rocephin initiated empirically. With the patient's loud cardiac murmur and low-grade fever and possible embolic stroke, this is somewhat concerning for endocarditis. Monitor on telemetry. EDITH Damon. It appears this was placed in the emergency room. I cannot find any notes indicating urinary retention. We'll check a CBC and basic metabolic profile again tomorrow Neuro checks every 8 hours Sepsis Assessment - Evaluation Sepsis screening result: Sepsis Risk Hospital Course Summary Disclaimer: The visit summary below is not to be considered part of the above Progress Note. Hospital Course: 11/23/16- Admission Impression Acute CVA Altered mentation Hypernatremia Mild leukocytosis Elevated bilirubin Hypertension Type II diabetes History of CVA Cataracts Urinary incontinence Plan Patient to outpatient observation under the care of Dr. Shay for acute CVA and altered mentation. Place consultation with speech therapy to evaluate swallow to rule out dysphasia. Consultation for PT and OT to evaluate patients strength, weakness and deficits. Patient does reside at home and normally walks with a walker. Mild leukocytosis. No evidence of urinary tract infection or pneumonia. Will continue to monitor for evidence of acute process. Leukocytosis may be stress- induced. Noted creatinine to be 1.8, however, this does appear to be chronic. Last creatinine from 2015 was 1.8 Will give 1/2 NS at 100 ml/hr for gentle hydration Did discuss with patient's family. Patient may require further rehabilitation including nursing home, IRU or senior living placement. Depending on his ongoing deficits. Family does verify again, the patient is a do not resuscitate and this order is written. Will discuss further orders and plan of care with attending, Dr. Shay. At time of discharge medical care will return to primary care provider, Dr. Lebron 11/24/16 Blood pressure remains mildly elevated in the 170's. Generally goal is to keep above 150. Will discuss with attending regarding adding Norvasc or increasing current regimen Blood cultures remain negative. Mild leukocytosis without any SIRS criteria. Awaiting for evaluation with therapy. Concerned that patient will not be able to return home Consult placed to IRU. Otherwise may need to consider senior living or SNU placement Discussed with CM 11/24/2016 I have independently evaluated and examined this patient. I reviewed the chart, the patient's history, and the RADIO STATION OPERATOR/PA's documented findings as above. We discussed and formulated the assessment and plan as above with additions as below. The patient was able to open his eyes and respond to questions today. In general, the patient is alert and , cooperative with exam, and in no respiratory distress. HEENT: Head is atraumatic, normocephalic, no conjunctival petechiae, no oral thrush, mucous membranes are moist and pink. Lungs: Clear to auscultation without wheezes, crackles or rhonchi CV: Regular rate and rhythm with systolic murmur Abdomen: Soft, nontender, bowel sounds are present, there is no guarding no rebound. Extremities: No clubbing, no cyanosis, no edema. Left foot is slightly mottled diminished pulse Skin: Warm and dry no sign of rash Neuro: Patient opens eye, is unable to follow commands Repeat blood pressure after taking his meds as 135/53-will continue his home blood pressure meds Discussed with casey saw operator at the patient is being evaluated for IRU today Discussed with patient's and daughter Dr. Monreal-11/25/2016 Impression Large right parietal ischemic CVA with possible small hemorrhagic component. Few small scattered acute ischemic strokes in the right basal ganglia and left posterior frontal subcortical white matter suggesting shower emboli Dementia Diabetes Poor by mouth intake since admission Dysphagia Hypertension Chronic kidney disease Low-grade fever (blood cultures negative 2 days, UA negative on admission, and chest x-ray without consolidation.) Bibasilar atelectasis on admission chest x-ray Plan I talked to the patient's and one of his daughters here in the hospital and spoke to another daughter by phone. I updated them on the patient's condition. I discussed current options for workup of his stroke. They're not wanting aggressive care but are in agreement with carotid Dopplers and echocardiogram. We'll start aspirin and Lipitor. The patient apparently had been on warfarin in the past but it was discontinued sometime last year. He may be a candidate for resuming warfarin for his acute embolic appearing stroke. Will await echocardiogram and carotid Dopplers. Usually one would wait at least 10 days to start Coumadin after a large stroke if it is indicated. My other concern is that the patient's by mouth intake is very poor and he is requiring IV fluids for hydration. Family would like to continue with IV fluids while we continue supportive care and try to encourage by mouth intake. If over the next couple of days oral intake is not improving then we will need to discuss further options. Monitor on telemetry. EDITH Damon. It appears this was placed in the emergency room. I cannot find any notes indicating urinary retention. We'll check a CBC and basic metabolic profile today and tomorrow. Neuro checks every 8 hours Patient was reportedly not a candidate for inpatient rehabilitation. Family would like him to go to nursing home if he improves over the next couple of days. Greater than 1 hour of time spent seeing and evaluating the patient, reviewing the chart, talking with family and coordinating the care plan.
--- NOTE | 2016-11-26 17:20 | XRay Report ---
Indication: fever PROCEDURE: XR chest 1V: Encounter: Initial Comparison: 11/23/2016 Findings: This exam is slightly more expiratory nature than most recent prior. There is some increase in left basilar atelectasis. There is a moderately tortuous descending thoracic aorta. There is mild prominence of the cardiac silhouette which may be accentuated by the AP portable technique. Trachea is midline. There is fullness in the upper mediastinum which is probably vascular. Impression: Increasing left basilar atelectasis, with overall expiratory technique. Follow-up to resolution is recommended. .
--- NOTE | 2016-11-26 17:23 | Echocardiogram ---
DATE OF PROCEDURE November 25, 2016. This is a two-dimensional echo with spectral Doppler, color-flow and M-mode. It was obtained in a patient with CVA. Left atrial dimension appears to be normal. Left ventricular end-diastolic dimension is normal. Left ventricular wall thickness is normal. LV systolic function is normal with ejection fraction of 55%. Right atrium is normal. Right ventricle is normal. Aortic root dimension is normal. Mitral valve annulus is calcified. Mitral valve leaflets are normal with trace of mitral regurgitation. Aortic valve shows fibrocalcific changes with no stenosis. Mild aortic insufficiency is present. Tricuspid valve shows trace of tricuspid regurgitation. Pulmonary valve shows no pulmonary insufficiency. There is no pericardial effusion. IMPRESSION 1. Technically difficult study. 2. Grossly, no intracardiac thrombus or mass. 3. Normal LV systolic function with ejection fraction of 55%. 4. Mitral annulus calcification with trace of mitral regurgitation. 5. Aortic sclerosis with mild aortic insufficiency. 6. Trace of tricuspid regurgitation. MTDD
[2016-11-26] MEDS: ATORVASTATIN 40 MG TABLET PO SCH (22:23)
[2016-11-27] MEDS: 1/2 NS 1,000 ML IV SCH ×3 (04:21→19:26)
[2016-11-27] MEDS: METOPROLOL SUCCINATE (XL) 100mg TABLET PO SCH (08:14)
[2016-11-27] MEDS: --POM--LOSARTAN 100 MG TABLET PO SCH (08:14)
[2016-11-27] MEDS: ASPIRIN 325 MG TABLET PO SCH (08:14)
[2016-11-27] MEDS: CEFTRIAXONE 1 G in NS 100 ML IV SCH (14:38)
[2016-11-27] MEDS ORDERED: ACETAMINOPHEN 500 MG TABLET PO PRN (16:09)
[2016-11-27] MEDS ORDERED: ACETAMINOPHEN 650 MG SUPPOSITORY PR PRN (16:09)
[2016-11-27] MEDS: HYDRALAZINE 20 MG/ML INJECTION IVP PRN (16:27)
--- NOTE | 2016-11-27 18:34 | Progress Note ---
Subjective: The patient was seen this morning accompanied by his . He was much more alert this morning. He was answering some questions and following a few commands. He took all of his medicines this morning and ate a little bit of breakfast. It looks like he ate about 25% of his lunch. He admitted to pain but then could not tell me where he was having discomfort. He continues to have intermittent elevated blood pressure. Objective Vital signs: Temperature 96.5 F L 11/27/16 16:07 Pulse Rate 59 L 11/27/16 17:57 Respiratory Rate 20 11/27/16 16:07 Blood Pressure 121/63 11/27/16 17:57 Pulse Oximetry 98 11/27/16 16:07 Oxygen Delivery Method Room Air Weight: 77 kg Comments: GEN-patient is more awake, he will squeeze my hands on command, he will turn his head to look at me on command. He will not open his mouth or move his legs on command HEENT-sclera anicteric, oropharynx is moist NECK-supple CV-regular rate and rhythm with a 4/6 systolic murmur CHEST-clear to auscultation bilaterally ABD-soft, nontender with positive bowel sounds -no Damon EXT-no edema NEURO-still with significant confusion. No obvious focal deficits in the face. Strength in upper extremities is equal. I cannot assess strength in the legs SKIN-warm and dry and without rashes Results - Labs CBC & Chem 7: 11/27/16 06:05 11/27/16 05:18 Microbiology Results: Microbiology 11/26/16 13:56 Peripheral/Iv Start Blood Culture - Preliminary No Growth After 1 Day 11/26/16 13:31 Peripheral/Iv Start Blood Culture - Preliminary No Growth After 1 Day Blood culture from 11/23/2016 are negative after 4 days Assessment and Plan (1) CVA (cerebral vascular accident) Current visit: Yes Status: Acute (2) Mental status change Current visit: Yes Status: Acute Assessment and Plan: Dr. Monreal-11/27/2016 Impression Large right parietal ischemic CVA with possible small hemorrhagic component. Few small scattered acute ischemic strokes in the right basal ganglia and left posterior frontal subcortical white matter suggesting shower emboli-the patient' s level of alertness today is much improved. Echocardiogram did not show any significant abnormalities or source for emboli. Carotid Dopplers did show some abnormality and the radiologist suggested a CTA of the neck but family is not wanting him to undergo this at this time. They would not want any type of surgery and are not wanting aggressive care. If the patient continues to show signs of improvement could consider CTA of the neck if that would help with determining care plan such as whether or not to initiate Coumadin 2 weeks after stroke Low-grade fever with mild leukocytosis -low-grade fever and elevated white count are both improved after initiation of Rocephin yesterday empirically. Blood cultures were repeated and are so far negative. Urinalysis has been negative 2. Chest x-ray does not show pneumonia. Loud systolic murmur -no significant valvular abnormalities seen on echocardiogram Dementia Diabetes Poor by mouth intake since admission-this has improved today. Continue to encourage by mouth intake. Dysphagia Hypertension Chronic kidney disease-continue to monitor Abnormal carotid Dopplers as above-CTA for further evaluation recommended by radiology, but family does not want this procedure at this time Hypertension-the patient was given a one-time dose of hydralazine today for systolic blood pressure of 196. At this time we'll continue his usual home blood pressure medication but if blood pressure continues to be elevated he may need additional antihypertensive Plan Regarding acute bilateral strokes, possibly embolic we'll continue on aspirin and statin for now. Echocardiogram did not show any significant abnormalities. Family does not want to pursue abnormalities seen on carotid Dopplers at this time. Continue supportive care for stroke. Monitor on telemetry. We'll check a CBC and basic metabolic profile again tomorrow Neuro checks every 8 hours Greater than 30 minutes time spent seeing and evaluating the patient in determining care plan today. Sepsis Assessment - Evaluation Sepsis screening result: No Definite Risk Hospital Course Summary Disclaimer: The visit summary below is not to be considered part of the above Progress Note. Hospital Course: 11/23/16- Admission Impression Acute CVA Altered mentation Hypernatremia Mild leukocytosis Elevated bilirubin Hypertension Type II diabetes History of CVA Cataracts Urinary incontinence Plan Patient to outpatient observation under the care of Dr. Shay for acute CVA and altered mentation. Place consultation with speech therapy to evaluate swallow to rule out dysphasia. Consultation for PT and OT to evaluate patients strength, weakness and deficits. Patient does reside at home and normally walks with a walker. Mild leukocytosis. No evidence of urinary tract infection or pneumonia. Will continue to monitor for evidence of acute process. Leukocytosis may be stress- induced. Noted creatinine to be 1.8, however, this does appear to be chronic. Last creatinine from 2016 was 1.8 Will give 1/2 NS at 100 ml/hr for gentle hydration Did discuss with patient's family. Patient may require further rehabilitation including retirement, IRU or [facility] placement. Depending on his ongoing deficits. Family does verify again, the patient is a do not resuscitate and this order is written. Will discuss further orders and plan of care with attending, Dr. Shay. At time of discharge medical care will return to primary care provider, Dr. Lebron 11/24/16 Blood pressure remains mildly elevated in the 170's. Generally goal is to keep above 150. Will discuss with attending regarding adding Norvasc or increasing current regimen Blood cultures remain negative. Mild leukocytosis without any SIRS criteria. Awaiting for evaluation with therapy. Concerned that patient will not be able to return home Consult placed to IRU. Otherwise may need to consider [facility] or SNU placement Discussed with CM 11/24/2016 I have independently evaluated and examined this patient. I reviewed the chart, the patient's history, and the NETWORK SYSTEMS CONSULTANT/PA's documented findings as above. We discussed and formulated the assessment and plan as above with additions as below. The patient was able to open his eyes and respond to questions today. In general, the patient is alert and , cooperative with exam, and in no respiratory distress. HEENT: Head is atraumatic, normocephalic, no conjunctival petechiae, no oral thrush, mucous membranes are moist and pink. Lungs: Clear to auscultation without wheezes, crackles or rhonchi CV: Regular rate and rhythm with systolic murmur Abdomen: Soft, nontender, bowel sounds are present, there is no guarding no rebound. Extremities: No clubbing, no cyanosis, no edema. Left foot is slightly mottled diminished pulse Skin: Warm and dry no sign of rash Neuro: Patient opens eye, is unable to follow commands Repeat blood pressure after taking his meds as 135/53-will continue his home blood pressure meds Discussed with counter caser at the patient is being evaluated for IRU today Discussed with patient's and daughter Dr. Monreal-11/25/2016 Impression Large right parietal ischemic CVA with possible small hemorrhagic component. Few small scattered acute ischemic strokes in the right basal ganglia and left posterior frontal subcortical white matter suggesting shower emboli Dementia Diabetes Poor by mouth intake since admission Dysphagia Hypertension Chronic kidney disease Low-grade fever (blood cultures negative 2 days, UA negative on admission, and chest x-ray without consolidation.) Bibasilar atelectasis on admission chest x-ray Plan I talked to the patient's and one of his daughters here in the hospital and spoke to another daughter by phone. I updated them on the patient's condition. I discussed current options for workup of his stroke. They're not wanting aggressive care but are in agreement with carotid Dopplers and echocardiogram. We'll start aspirin and Lipitor. The patient apparently had been on warfarin in the past but it was discontinued sometime last year. He may be a candidate for resuming warfarin for his acute embolic appearing stroke. Will await echocardiogram and carotid Dopplers. Usually one would wait at least 10 days to start Coumadin after a large stroke if it is indicated. My other concern is that the patient's by mouth intake is very poor and he is requiring IV fluids for hydration. Family would like to continue with IV fluids while we continue supportive care and try to encourage by mouth intake. If over the next couple of days oral intake is not improving then we will need to discuss further options. Monitor on telemetry. EDITH Damon. It appears this was placed in the emergency room. I cannot find any notes indicating urinary retention. We'll check a CBC and basic metabolic profile today and tomorrow. Neuro checks every 8 hours Patient was reportedly not a candidate for inpatient rehabilitation. Family would like him to go to retirement if he improves over the next couple of days. Greater than 1 hour of time spent seeing and evaluating the patient, reviewing the chart, talking with family and coordinating the care plan.
[2016-11-27] MEDS: ATORVASTATIN 40 MG TABLET PO SCH (21:35)
[2016-11-28] MEDS: 1/2 NS 1,000 ML IV SCH (05:49)
[2016-11-28] MEDS: METOPROLOL SUCCINATE (XL) 100mg TABLET PO SCH (08:32)
[2016-11-28] MEDS: --POM--LOSARTAN 100 MG TABLET PO SCH (08:32)
[2016-11-28] MEDS: ASPIRIN 325 MG TABLET PO SCH (08:32)
--- NOTE | 2016-11-28 10:51 | Progress Note ---
Subjective: Up to chair this morning, mumbles some answers to questions for me. Not eating per RN, despite encouragement yesterday and this morning. Denies dyspnea. Agitated and combative at times. Does not want child monitor or pulse ox on. Objective Vital signs: Temperature 98.1 F 11/28/16 07:16 Pulse Rate 61 11/28/16 08:00 Respiratory Rate 20 11/28/16 07:16 Blood Pressure 148/44 H 11/28/16 07:16 Pulse Oximetry 97 11/28/16 07:16 Oxygen Delivery Method Room Air Weight: 69.3 kg - Constitutional Present: no acute distress, well nourished, well developed - Routine HEENT Exam Head: Present: normocephalic, atraumatic Eye: Present: EOMI, PERRL, conjunctivae pink. Absent: conjunctival icterus ENT: Present: mucous membranes dry, oropharynx clear - Routine Respiratory Exam Present: decreased breath sounds, diminished air movement. Absent: accessory muscle use, respiratory distress - Routine Cardiovascular Exam Present: RRR, murmur (4/6 SHANIKA audible) - Routine Abdominal Exam Present: soft. Absent: tenderness, non distended - Routine Extremities Exam Present: edema (trace BLE), non tender - Routine Skin Exam Present: dry. Absent: rash - Routine Neurological Exam Present: alert, altered mental status, moving all extremities, vision grossly intact, hearing grossly intact Results - Labs CBC & Chem 7: 11/27/16 06:05 11/27/16 05:18 Microbiology Results: Microbiology 11/26/16 13:56 Peripheral/Iv Start Blood Culture - Preliminary No Growth After 1 Day 11/26/16 13:31 Peripheral/Iv Start Blood Culture - Preliminary No Growth After 1 Day Assessment and Plan Assessment and Plan: 11/28/16--[place] Impression Large right parietal ischemic CVA with possible small hemorrhagic component. Few small scattered acute ischemic strokes in the right basal ganglia and left posterior frontal subcortical white matter suggesting shower emboli-the patient' s level of alertness today is much improved. Echocardiogram did not show any significant abnormalities or source for emboli. Carotid Dopplers did show some abnormality and the radiologist suggested a CTA of the neck but family is not wanting him to undergo this when discussed. They would not want any type of surgery and are not wanting aggressive care. If the patient continues to show signs of improvement we could consider CTA of the neck if that would help with determining care plan such as whether or not to initiate Coumadin 2 weeks after stroke. Some marginal improvement today but not eating, still quite encephalopathic. Low-grade fever with mild leukocytosis--both improved with empiric rocephin and his mental status has improved somewhat as well. Blood cultures were repeated and are so far negative. Urinalysis has been negative 2. Chest x-ray does not show pneumonia. Unclear if coincidental or occult infection. Loud and harsh systolic murmur -no significant valvular abnormalities seen on echocardiogram Dementia Diabetes Poor by mouth intake since admission, not much improvement thus far. Dysphagia, on pureed diet Hypertension Chronic kidney disease-continue to monitor Abnormal carotid Dopplers as above-CTA for further evaluation recommended by radiology, but family has declined the procedure at this point due to overall debility, ongoing goals of care discussions, giving him some time to see if there is improvement. Hypertension-improved today, will monitor but would not treat aggressively given acute stroke, monitor. Plan Regarding acute bilateral strokes, possibly embolic we'll continue on aspirin and statin for now. Echocardiogram did not show any significant abnormalities. Risk of hemorrhagic conversion and some small component of that on imaging, hold any lovenox or other AC at this time. Family does not want to pursue abnormalities seen on carotid Dopplers at this time. Will discuss further if clinically improving. Continue supportive care for stroke. Will stop telemetry and continuous 02 at this point as it is making him more agitated. We'll check a CBC and renal panel tomorrow for surveillance. Neuro checks every 8 hours Discussed with nursing staff and with family. Sepsis Assessment - Evaluation Sepsis screening result: No Definite Risk Hospital Course Summary Disclaimer: The visit summary below is not to be considered part of the above Progress Note. Hospital Course: 11/23/16- Admission Impression Acute CVA Altered mentation Hypernatremia Mild leukocytosis Elevated bilirubin Hypertension Type II diabetes History of CVA Cataracts Urinary incontinence Plan Patient to outpatient observation under the care of Dr. Shay for acute CVA and altered mentation. Place consultation with speech therapy to evaluate swallow to rule out dysphasia. Consultation for PT and OT to evaluate patients strength, weakness and deficits. Patient does reside at home and normally walks with a walker. Mild leukocytosis. No evidence of urinary tract infection or pneumonia. Will continue to monitor for evidence of acute process. Leukocytosis may be stress- induced. Noted creatinine to be 1.8, however, this does appear to be chronic. Last creatinine from 2016 was 1.8 Will give 1/2 NS at 100 ml/hr for gentle hydration Did discuss with patient's family. Patient may require further rehabilitation including penitentiary, IRU or fdc placement. Depending on his ongoing deficits. Family does verify again, the patient is a do not resuscitate and this order is written. Will discuss further orders and plan of care with attending, Dr. Shay. At time of discharge medical care will return to primary care provider, Dr. Lebron 11/24/16 Blood pressure remains mildly elevated in the 170's. Generally goal is to keep above 150. Will discuss with attending regarding adding Norvasc or increasing current regimen Blood cultures remain negative. Mild leukocytosis without any SIRS criteria. Awaiting for evaluation with therapy. Concerned that patient will not be able to return home Consult placed to IRU. Otherwise may need to consider fdc or SNU placement Discussed with CM 11/24/2016 I have independently evaluated and examined this patient. I reviewed the chart, the patient's history, and the SHEET METAL SUPERVISOR/PA's documented findings as above. We discussed and formulated the assessment and plan as above with additions as below. The patient was able to open his eyes and respond to questions today. In general, the patient is alert and , cooperative with exam, and in no respiratory distress. HEENT: Head is atraumatic, normocephalic, no conjunctival petechiae, no oral thrush, mucous membranes are moist and pink. Lungs: Clear to auscultation without wheezes, crackles or rhonchi CV: Regular rate and rhythm with systolic murmur Abdomen: Soft, nontender, bowel sounds are present, there is no guarding no rebound. Extremities: No clubbing, no cyanosis, no edema. Left foot is slightly mottled diminished pulse Skin: Warm and dry no sign of rash Neuro: Patient opens eye, is unable to follow commands Repeat blood pressure after taking his meds as 135/53-will continue his home blood pressure meds Discussed with trimming caser at the patient is being evaluated for IRU today Discussed with patient's and daughter Dr. Monreal-11/25/2016 Impression Large right parietal ischemic CVA with possible small hemorrhagic component. Few small scattered acute ischemic strokes in the right basal ganglia and left posterior frontal subcortical white matter suggesting shower emboli Dementia Diabetes Poor by mouth intake since admission Dysphagia Hypertension Chronic kidney disease Low-grade fever (blood cultures negative 2 days, UA negative on admission, and chest x-ray without consolidation.) Bibasilar atelectasis on admission chest x-ray Plan I talked to the patient's and one of his daughters here in the hospital and spoke to another daughter by phone. I updated them on the patient's condition. I discussed current options for workup of his stroke. They're not wanting aggressive care but are in agreement with carotid Dopplers and echocardiogram. We'll start aspirin and Lipitor. The patient apparently had been on warfarin in the past but it was discontinued sometime last year. He may be a candidate for resuming warfarin for his acute embolic appearing stroke. Will await echocardiogram and carotid Dopplers. Usually one would wait at least 10 days to start Coumadin after a large stroke if it is indicated. My other concern is that the patient's by mouth intake is very poor and he is requiring IV fluids for hydration. Family would like to continue with IV fluids while we continue supportive care and try to encourage by mouth intake. If over the next couple of days oral intake is not improving then we will need to discuss further options. Monitor on telemetry. EDITH Damon. It appears this was placed in the emergency room. I cannot find any notes indicating urinary retention. We'll check a CBC and basic metabolic profile today and tomorrow. Neuro checks every 8 hours Patient was reportedly not a candidate for inpatient rehabilitation. Family would like him to go to penitentiary if he improves over the next couple of days. Greater than 1 hour of time spent seeing and evaluating the patient, reviewing the chart, talking with family and coordinating the care plan. 11/28/16--[place] Impression Large right parietal ischemic CVA with possible small hemorrhagic component. Few small scattered acute ischemic strokes in the right basal ganglia and left posterior frontal subcortical white matter suggesting shower emboli-the patient' s level of alertness today is much improved. Echocardiogram did not show any significant abnormalities or source for emboli. Carotid Dopplers did show some abnormality and the radiologist suggested a CTA of the neck but family is not wanting him to undergo this when discussed. They would not want any type of surgery and are not wanting aggressive care. If the patient continues to show signs of improvement we could consider CTA of the neck if that would help with determining care plan such as whether or not to initiate Coumadin 2 weeks after stroke. Some marginal improvement today but not eating, still quite encephalopathic. Low-grade fever with mild leukocytosis--both improved with empiric rocephin and his mental status has improved somewhat as well. Blood cultures were repeated and are so far negative. Urinalysis has been negative 2. Chest x-ray does not show pneumonia. Unclear if coincidental or occult infection. Loud and harsh systolic murmur -no significant valvular abnormalities seen on echocardiogram Dementia Diabetes Poor by mouth intake since admission, not much improvement thus far. Dysphagia, on pureed diet Hypertension Chronic kidney disease-continue to monitor Abnormal carotid Dopplers as above-CTA for further evaluation recommended by radiology, but family has declined the procedure at this point due to overall debility, ongoing goals of care discussions, giving him some time to see if there is improvement. Hypertension-improved today, will monitor but would not treat aggressively given acute stroke, monitor. Plan Regarding acute bilateral strokes, possibly embolic we'll continue on aspirin and statin for now. Echocardiogram did not show any significant abnormalities. Risk of hemorrhagic conversion and some small component of that on imaging, hold any lovenox or other AC at this time. Family does not want to pursue abnormalities seen on carotid Dopplers at this time. Will discuss further if clinically improving. Continue supportive care for stroke. Will stop telemetry and continuous 02 at this point as it is making him more agitated. We'll check a CBC and renal panel tomorrow for surveillance. Neuro checks every 8 hours
[2016-11-28] MEDS: CEFTRIAXONE 1 G in NS 100 ML IV SCH (13:56)
[2016-11-28] MEDS: SALINE FLUSH 10ml SYRINGE IVF PRN (13:56)
[2016-11-28] MEDS: ATORVASTATIN 40 MG TABLET PO SCH (22:37)
[2016-11-29] MEDS: METOPROLOL SUCCINATE (XL) 100mg TABLET PO SCH (11:36)
[2016-11-29] MEDS: ASPIRIN 325 MG TABLET PO SCH (11:36)
[2016-11-29] MEDS: --POM--LOSARTAN 100 MG TABLET PO SCH (11:36)
--- NOTE | 2016-11-29 12:09 | Progress Note ---
Subjective: More awake and alert but has been combative at times. Removed his IV yesterday. Not eating and drinking, will not take po medications this morning. ROS not obtainable from the patient. Objective Vital signs: Temperature 95.5 F L 11/29/16 08:00 Pulse Rate 64 11/29/16 08:00 Respiratory Rate 18 11/29/16 08:00 Blood Pressure 120/84 11/29/16 09:09 Pulse Oximetry 95 11/29/16 08:00 Oxygen Delivery Method Room Air Weight: 67.3 kg - Constitutional Present: no acute distress, well nourished, well developed. Absent: cooperative - Routine HEENT Exam Head: Present: normocephalic, atraumatic Eye: Present: EOMI, PERRL. Absent: conjunctival icterus ENT: Present: mucous membranes dry, oropharynx clear - Routine Respiratory Exam Present: CTA bilaterally. Absent: wheezes, crackles - Routine Cardiovascular Exam Present: RRR - Routine Abdominal Exam Present: soft, non distended, non tender - Routine Extremities Exam Present: pulses intact, normal capillary refill. Absent: edema - Routine Skin Exam Present: dry, warm. Absent: jaundice, rash - Routine Neurological Exam Present: alert, vision grossly intact, hearing grossly intact - Routine Psychiatric Exam Present: agitated Results - Labs CBC & Chem 7: 11/29/16 07:19 11/29/16 07:19 Microbiology Results: Microbiology 11/26/16 13:56 Peripheral/Iv Start Blood Culture - Preliminary No Growth After 2 Days 11/26/16 13:31 Peripheral/Iv Start Blood Culture - Preliminary No Growth After 2 Days Assessment and Plan DVT Prophylaxis: SCD's Resuscitation Status: Do Not Resuscitate Assessment and Plan: 11/28/16--[place] Impression Large right parietal ischemic CVA with possible small hemorrhagic component. Few small scattered acute ischemic strokes in the right basal ganglia and left posterior frontal subcortical white matter suggesting shower emboli-the patient' s level of alertness today is much improved. Echocardiogram did not show any significant abnormalities or source for emboli. Carotid Dopplers did show some abnormality and the radiologist suggested a CTA of the neck but family is not wanting him to undergo this when discussed. They would not want any type of surgery and have expressed that they do not want aggressive care but would like to see if he will improve with a little time. He has improved marginally in that he is more awake now but is combative and not taking in any po pills or nutrition. Low-grade fever with mild leukocytosis--both improved with empiric rocephin and his mental status has improved somewhat as well. Blood cultures were repeated and are so far negative. Urinalysis has been negative 2. Chest x-ray does not show pneumonia. Unclear if coincidental or occult infection. Will continue rocephin today and plan to DC after this dose and monitor. Loud and harsh systolic murmur -no significant valvular abnormalities seen on echocardiogram Dementia, may not return to previous baseline after this event Diabetes Poor by mouth intake since admission, not much improvement thus far Dysphagia, on pureed diet Hypertension Chronic kidney disease-continue to monitor Abnormal carotid Dopplers as above-CTA for further evaluation recommended by radiology, but family has declined the procedure at this point due to overall debility, ongoing goals of care discussions, giving him some time to see if there is improvement. Hypertension-improved today, will monitor but would not treat aggressively given acute stroke, refusing AM medications Hypernatremia, worsening with Na 150 due to poor po intake and free water deficit Plan Regarding acute bilateral strokes, possibly embolic we'll continue on aspirin and statin for now. Echocardiogram did not show any significant abnormalities. Risk of hemorrhagic conversion and some small component of that on imaging, hold any lovenox or other AC at this time. Family does not want to pursue abnormalities seen on carotid Dopplers at this time. Will discuss further if clinically improving but thus far not much improvement outside of being more alert. Will change losartan dosing to 50 mg daily as his states that is his home dose. Continue supportive care for stroke. Will continue off of telemetry and continuous 02 at this point as it is making him more agitated. We'll check a CBC and renal panel tomorrow for surveillance. Will replace IV line today as Na is up to 150, taking in little po. Start D5at 50 cc/hour. When more family available will discuss further re: goals of care. Appropriate for hospice involvement at this point if no further interventions desired. Discussed with nursing staff. Sepsis Assessment - Evaluation Sepsis screening result: No Definite Risk Hospital Course Summary Disclaimer: The visit summary below is not to be considered part of the above Progress Note. Hospital Course: 11/23/16- Admission Impression Acute CVA Altered mentation Hypernatremia Mild leukocytosis Elevated bilirubin Hypertension Type II diabetes History of CVA Cataracts Urinary incontinence Plan Patient to outpatient observation under the care of Dr. Shay for acute CVA and altered mentation. Place consultation with speech therapy to evaluate swallow to rule out dysphasia. Consultation for PT and OT to evaluate patients strength, weakness and deficits. Patient does reside at home and normally walks with a walker. Mild leukocytosis. No evidence of urinary tract infection or pneumonia. Will continue to monitor for evidence of acute process. Leukocytosis may be stress- induced. Noted creatinine to be 1.8, however, this does appear to be chronic. Last creatinine from 2015 was 1.8 Will give 1/2 NS at 100 ml/hr for gentle hydration Did discuss with patient's family. Patient may require further rehabilitation including snf, IRU or senior care placement. Depending on his ongoing deficits. Family does verify again, the patient is a do not resuscitate and this order is written. Will discuss further orders and plan of care with attending, Dr. Shay. At time of discharge medical care will return to primary care provider, Dr. Lebron 11/24/16 Blood pressure remains mildly elevated in the 170's. Generally goal is to keep above 150. Will discuss with attending regarding adding Norvasc or increasing current regimen Blood cultures remain negative. Mild leukocytosis without any SIRS criteria. Awaiting for evaluation with therapy. Concerned that patient will not be able to return home Consult placed to IRU. Otherwise may need to consider senior care or SNU placement Discussed with CM 11/24/2016 I have independently evaluated and examined this patient. I reviewed the chart, the patient's history, and the [employer]/PA's documented findings as above. We discussed and formulated the assessment and plan as above with additions as below. The patient was able to open his eyes and respond to questions today. In general, the patient is alert and , cooperative with exam, and in no respiratory distress. HEENT: Head is atraumatic, normocephalic, no conjunctival petechiae, no oral thrush, mucous membranes are moist and pink. Lungs: Clear to auscultation without wheezes, crackles or rhonchi CV: Regular rate and rhythm with systolic murmur Abdomen: Soft, nontender, bowel sounds are present, there is no guarding no rebound. Extremities: No clubbing, no cyanosis, no edema. Left foot is slightly mottled diminished pulse Skin: Warm and dry no sign of rash Neuro: Patient opens eye, is unable to follow commands Repeat blood pressure after taking his meds as 135/53-will continue his home blood pressure meds Discussed with residential case manager at the patient is being evaluated for IRU today Discussed with patient's and daughter Monreal-11/25/2016 Impression Large right parietal ischemic CVA with possible small hemorrhagic component. Few small scattered acute ischemic strokes in the right basal ganglia and left posterior frontal subcortical white matter suggesting shower emboli Dementia Diabetes Poor by mouth intake since admission Dysphagia Hypertension Chronic kidney disease Low-grade fever (blood cultures negative 2 days, UA negative on admission, and chest x-ray without consolidation.) Bibasilar atelectasis on admission chest x-ray Plan I talked to the patient's and one of his daughters here in the hospital and spoke to another daughter by phone. I updated them on the patient's condition. I discussed current options for workup of his stroke. They're not wanting aggressive care but are in agreement with carotid Dopplers and echocardiogram. We'll start aspirin and Lipitor. The patient apparently had been on warfarin in the past but it was discontinued sometime last year. He may be a candidate for resuming warfarin for his acute embolic appearing stroke. Will await echocardiogram and carotid Dopplers. Usually one would wait at least 10 days to start Coumadin after a large stroke if it is indicated. My other concern is that the patient's by mouth intake is very poor and he is requiring IV fluids for hydration. Family would like to continue with IV fluids while we continue supportive care and try to encourage by mouth intake. If over the next couple of days oral intake is not improving then we will need to discuss further options. Monitor on telemetry. EDITH Damon. It appears this was placed in the emergency room. I cannot find any notes indicating urinary retention. We'll check a CBC and basic metabolic profile today and tomorrow. Neuro checks every 8 hours Patient was reportedly not a candidate for inpatient rehabilitation. Family would like him to go to snf if he improves over the next couple of days. Greater than 1 hour of time spent seeing and evaluating the patient, reviewing the chart, talking with family and coordinating the care plan. 11/28/16--[place] Impression Large right parietal ischemic CVA with possible small hemorrhagic component. Few small scattered acute ischemic strokes in the right basal ganglia and left posterior frontal subcortical white matter suggesting shower emboli-the patient' s level of alertness today is much improved. Echocardiogram did not show any significant abnormalities or source for emboli. Carotid Dopplers did show some abnormality and the radiologist suggested a CTA of the neck but family is not wanting him to undergo this when discussed. They would not want any type of surgery and are not wanting aggressive care. If the patient continues to show signs of improvement we could consider CTA of the neck if that would help with determining care plan such as whether or not to initiate Coumadin 2 weeks after stroke. Some marginal improvement today but not eating, still quite encephalopathic. Low-grade fever with mild leukocytosis--both improved with empiric rocephin and his mental status has improved somewhat as well. Blood cultures were repeated and are so far negative. Urinalysis has been negative 2. Chest x-ray does not show pneumonia. Unclear if coincidental or occult infection. Loud and harsh systolic murmur -no significant valvular abnormalities seen on echocardiogram Dementia Diabetes Poor by mouth intake since admission, not much improvement thus far. Dysphagia, on pureed diet Hypertension Chronic kidney disease-continue to monitor Abnormal carotid Dopplers as above-CTA for further evaluation recommended by radiology, but family has declined the procedure at this point due to overall debility, ongoing goals of care discussions, giving him some time to see if there is improvement. Hypertension-improved today, will monitor but would not treat aggressively given acute stroke, monitor. Plan Regarding acute bilateral strokes, possibly embolic we'll continue on aspirin and statin for now. Echocardiogram did not show any significant abnormalities. Risk of hemorrhagic conversion and some small component of that on imaging, hold any lovenox or other AC at this time. Family does not want to pursue abnormalities seen on carotid Dopplers at this time. Will discuss further if clinically improving. Continue supportive care for stroke. Will stop telemetry and continuous 02 at this point as it is making him more agitated. We'll check a CBC and renal panel tomorrow for surveillance. Neuro checks every 8 hours 11/29/16--[place] Not much change today, more combative at times, refusing po nutrition and all medications. IV line removed yesterday by patient and attempting to replace today due to need for IVF support; Na increased to 150. Plan Regarding acute bilateral strokes, possibly embolic we'll continue on aspirin and statin for now. Echocardiogram did not show any significant abnormalities. Risk of hemorrhagic conversion and some small component of that on imaging, hold any lovenox or other AC at this time. Family does not want to pursue abnormalities seen on carotid Dopplers at this time. Will discuss further if clinically improving but thus far not much improvement outside of being more alert. Will change losartan dosing to 50 mg daily as his states that is his home dose. Continue supportive care for stroke. Will continue off of telemetry and continuous 02 at this point as it is making him more agitated. We'll check a CBC and renal panel tomorrow for surveillance. Will replace IV line today as Na is up to 150, taking in little po. Start D5at 50 cc/hour. When more family available will discuss further re: goals of care. Appropriate for hospice involvement at this point if no further interventions desired.
[2016-11-29] MEDS: D5W 1,000 ML IV SCH (13:33)
[2016-11-29] MEDS: CEFTRIAXONE 1 G in NS 100 ML IV SCH (13:35)
[2016-11-29] MEDS: ATORVASTATIN 40 MG TABLET PO SCH (21:43)
[2016-11-30] MEDS: HYDRALAZINE 20 MG/ML INJECTION IVP PRN
[2016-11-30] MEDS: SALINE FLUSH 10ml SYRINGE IVF PRN ×2 (00:03→08:37)
[2016-11-30] MEDS: D5W 1,000 ML IV SCH ×2 (07:40→11:06)
[2016-11-30 08:56] VITALS: BP 157/78; PULSE 66; RESP 16; TEMP 96.9; O2SAT 96
[2016-11-30] MEDS ORDERED: LOSARTAN 50 MG TABLET PO SCH (09:00)
[2016-11-30] MEDS: ASPIRIN 325 MG TABLET PO SCH (09:44)
[2016-11-30] MEDS: METOPROLOL SUCCINATE (XL) 100mg TABLET PO SCH (09:58)
--- NOTE | 2016-11-30 14:03 | Progress Note ---
Subjective: F/U: CVA Resting in bed. Worked with therapy with am, but very sleepy at this time. Oral drive decreased. Family wishing to try skilled care to help his abilities. Not wanting Feeding tube. Family understands that if pt not able to make gain, hospice care would be next option. Objective Vital signs: Temperature 96.9 F 11/30/16 08:38 Pulse Rate 66 11/30/16 08:38 Respiratory Rate 16 11/30/16 08:38 Blood Pressure 157/78 H 11/30/16 08:38 Pulse Oximetry 96 11/30/16 08:38 Oxygen Delivery Method Room Air Weight: 67.9 kg - Constitutional Present: no acute distress, well nourished, well developed, somnolent - Routine HEENT Exam Head: Present: normocephalic, atraumatic ENT: Present: mucous membranes moist - Routine Respiratory Exam Present: CTA bilaterally. Absent: respiratory distress, rhonchi, wheezes, crackles - Routine Cardiovascular Exam Present: RRR - Routine Abdominal Exam Present: soft, normoactive bowel sounds. Absent: non distended, non tender - Routine Extremities Exam Present: pulses intact. Absent: cyanosis, clubbing - Routine Musculoskeletal Exam Musculoskeletal: Present: no clubbing or cyanosis - Routine Skin Exam Present: warm, normal turgor - Routine Neurological Exam Not able to access as pt somnolent - Routine Psychiatric Exam Present: unable to assess (Somnolent) Results - Labs CBC & Chem 7: 11/30/16 06:31 11/30/16 06:31 Microbiology Results: Microbiology 11/26/16 13:31 Peripheral/Iv Start Blood Culture - Preliminary No Growth After 4 Days 11/26/16 13:56 Peripheral/Iv Start Blood Culture - Preliminary No Growth After 3 Days Assessment and Plan (1) CVA (cerebral vascular accident) Current visit: Yes Status: Acute (2) Mental status change Current visit: Yes Status: Acute DVT Prophylaxis: SCD's Resuscitation Status: Do Not Resuscitate Assessment and Plan: 11/28/16--[place] Impression Large right parietal ischemic CVA with possible small hemorrhagic component. Dementia, may not return to previous baseline after this event Diabetes Poor by mouth intake since admission, not much improvement thus far Dysphagia, on pureed diet Hypertension Chronic kidney disease-continue to monitor Abnormal carotid Dopplers Hypertension Hypernatremia Plan Sodium improved to 143. Oral drive still diminished. Does work with therapy. Will discharge to [facility] for continuation or therapy: PT/OT/Speech. Continue with current medications. Stop IVF. F/U with Dr Reid in 1 week. Would consider hospice care if patient not making meaningful gains with therapy. Case discussed with CM and family. Time spent with patient care and discharge greater than 35 minutes. Sepsis Assessment - Evaluation Sepsis screening result: No Definite Risk Hospital Course Summary Disclaimer: The visit summary below is not to be considered part of the above Progress Note. Hospital Course: 11/23/16- Admission Impression Acute CVA Altered mentation Hypernatremia Mild leukocytosis Elevated bilirubin Hypertension Type II diabetes History of CVA Cataracts Urinary incontinence Plan Patient to outpatient observation under the care of Dr. Shay for acute CVA and altered mentation. Place consultation with speech therapy to evaluate swallow to rule out dysphasia. Consultation for PT and OT to evaluate patients strength, weakness and deficits. Patient does reside at home and normally walks with a walker. Mild leukocytosis. No evidence of urinary tract infection or pneumonia. Will continue to monitor for evidence of acute process. Leukocytosis may be stress- induced. Noted creatinine to be 1.8, however, this does appear to be chronic. Last creatinine from 2016 was 1.8 Will give 1/2 NS at 100 ml/hr for gentle hydration Did discuss with patient's family. Patient may require further rehabilitation including senior care, IRU or intermediate placement. Depending on his ongoing deficits. Family does verify again, the patient is a do not resuscitate and this order is written. Will discuss further orders and plan of care with attending, Dr. Shay. At time of discharge medical care will return to primary care provider, Dr. Lebron 11/24/16 Blood pressure remains mildly elevated in the 170's. Generally goal is to keep above 150. Will discuss with attending regarding adding Norvasc or increasing current regimen Blood cultures remain negative. Mild leukocytosis without any SIRS criteria. Awaiting for evaluation with therapy. Concerned that patient will not be able to return home Consult placed to IRU. Otherwise may need to consider intermediate or SNU placement Discussed with CM 11/25/2016 - Dr Monreal I talked to the patient's and one of his daughters here in the hospital and spoke to another daughter by phone. I updated them on the patient's condition. I discussed current options for workup of his stroke. They're not wanting aggressive care but are in agreement with carotid Dopplers and echocardiogram. We'll start aspirin and Lipitor. The patient apparently had been on warfarin in the past but it was discontinued sometime last year. He may be a candidate for resuming warfarin for his acute embolic appearing stroke. Will await echocardiogram and carotid Dopplers. Usually one would wait at least 10 days to start Coumadin after a large stroke if it is indicated. My other concern is that the patient's by mouth intake is very poor and he is requiring IV fluids for hydration. Family would like to continue with IV fluids while we continue supportive care and try to encourage by mouth intake. If over the next couple of days oral intake is not improving then we will need to discuss further options. Monitor on telemetry. EDITH Damon. It appears this was placed in the emergency room. I cannot find any notes indicating urinary retention. We'll check a CBC and basic metabolic profile today and tomorrow. Neuro checks every 8 hours Patient was reportedly not a candidate for inpatient rehabilitation. Family would like him to go to senior care if he improves over the next couple of days. Greater than 1 hour of time spent seeing and evaluating the patient, reviewing the chart, talking with family and coordinating the care plan. 11/28/16--[place] Regarding acute bilateral strokes, possibly embolic we'll continue on aspirin and statin for now. Echocardiogram did not show any significant abnormalities. Risk of hemorrhagic conversion and some small component of that on imaging, hold any lovenox or other AC at this time. Family does not want to pursue abnormalities seen on carotid Dopplers at this time. Will discuss further if clinically improving. Continue supportive care for stroke. Will stop telemetry and continuous 02 at this point as it is making him more agitated. We'll check a CBC and renal panel tomorrow for surveillance. Neuro checks every 8 hours 11/29/16--[place] Not much change today, more combative at times, refusing po nutrition and all medications. IV line removed yesterday by patient and attempting to replace today due to need for IVF support; Na increased to 150. Regarding acute bilateral strokes, possibly embolic we'll continue on aspirin and statin for now. Echocardiogram did not show any significant abnormalities. Risk of hemorrhagic conversion and some small component of that on imaging, hold any lovenox or other AC at this time. Family does not want to pursue abnormalities seen on carotid Dopplers at this time. Will discuss further if clinically improving but thus far not much improvement outside of being more alert. Will change losartan dosing to 50 mg daily as his states that is his home dose. Continue supportive care for stroke. Will continue off of telemetry and continuous 02 at this point as it is making him more agitated. We'll check a CBC and renal panel tomorrow for surveillance. Will replace IV line today as Na is up to 150, taking in little po. Start D5at 50 cc/hour. When more family available will discuss further re: goals of care. Appropriate for hospice involvement at this point if no further interventions desired. 11/30/16 Sodium improved to 143. Oral drive still diminished. Does work with therapy. Will discharge to [facility] for continuation or therapy: PT/OT/Speech. Continue with current medications. Stop IVF. F/U with Dr Reid in 1 week. Would consider hospice care if patient not making meaningful gains with therapy.
--- NOTE | 2016-11-30 14:16 | Discharge Summary ---
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 Associated conditions and complications Altered mentation Dysphagia Hypernatremia Mild leukocytosis Elevated bilirubin Hypertension Type II diabetes History of CVA Cataracts Urinary incontinence - Procedures Procedures: Date of Exam: 11/25/16 Type of Exam: US echo doppler complete Left atrial dimension appears to be normal. Left ventricular end-diastolic dimension is normal. Left ventricular wall thickness is normal. LV systolic function is normal with ejection fraction of 55%. Right atrium is normal. Right ventricle is normal. Aortic root dimension is normal. Mitral valve annulus is calcified. Mitral valve leaflets are normal with trace of mitral regurgitation. Aortic valve shows fibrocalcific changes with no stenosis. Mild aortic insufficiency is present. Tricuspid valve shows trace of tricuspid regurgitation. Pulmonary valve shows no pulmonary insufficiency. There is no pericardial effusion. IMPRESSION 1. Technically difficult study. 2. Grossly, no intracardiac thrombus or mass. 3. Normal LV systolic function with ejection fraction of 55%. 4. Mitral annulus calcification with trace of mitral regurgitation. 5. Aortic sclerosis with mild aortic insufficiency. 6. Trace of tricuspid regurgitation. - Laboratory Labs: 11/30/16 06:31 11/30/16 06:31 - Microbiology Microbiology 11/26/16 13:31 Peripheral/Iv Start Blood Culture - Preliminary No Growth After 4 Days 11/26/16 13:56 Peripheral/Iv Start Blood Culture - Preliminary No Growth After 3 Days - Radiology Radiology: Date of Exam: 11/23/16 Type of Exam: CT head/brain w/o con FINDINGS: The ventricles and sulci are prominent compatible with age-related atrophy. Encephalomalacia within the right occipital lobe compatible with chronic cerebrovascular accident as demonstrated in the CT head and August 2009. Encephalomalacia within the left cerebellar hemisphere suggesting chronic ischemic insult as well. There is area of low attenuation within the right parietal cortex suggesting subacute to chronic infarct. Slightly hyperdense right MCA could indicate underlying thrombus. There is a prominent Virchow-Bebeto space in the left basal ganglia region. There is no significant midline shift or mass effect. Basilar cisterns are patent. The paranasal sinuses and mastoid air are clear. Globes and orbits are normal. No intraparenchymal or extra-axial hemorrhage. IMPRESSION: 1. Encephalomalacia about the right occipital lobe compatible chronic cerebrovascular accident. Encephalomalacia within the left cerebellar hemisphere also suggestive of a chronic cerebrovascular accident. 2. Area of low-attenuation with the right parietal cortex may indicate subacute to chronic infarct. Clinical correlation recommended. 3. Slightly hyperdense right MCA could indicate underlying thrombus. Date of Exam: 11/23/16 Type of Exam: MR head/brain w/o con FINDINGS: The ventricles and sulci are prominent compatible with age-related cerebral atrophy. There is a large area of restricted diffusion within the right parietal cortex compatible with a acute to subacute right MCA distribution infarct. Gradient echo images demonstrate areas of susceptibility artifact suggestive of hemosiderin. In addition there are a few small foci demonstrating restricted diffusion within the right basal ganglia region and the left posterior frontal subcortical white matter suggesting shower emboli. Flow voids are maintained within the major dural venous sinuses and zuni of [place] without obvious right MCA distribution thrombus. Impression: 1. Large area of restricted diffusion within the right parietal cortex MCA distribution compatible with acute/subacute infarct. There are few areas of susceptibility artifact/hemosiderin suggesting small hemorrhagic components. 2. There are a few small foci of restricted diffusion compatible with acute infarcts within the right basal ganglia and left posterior frontal subcortical white matter suggesting shower emboli. 3. Age-related atrophy. 4. Flow voids are maintained in the zuni of [place]. No evidence for right MCA distribution thrombus. Date of Exam: 11/25/16 Type of Exam: US carotid doppler BI Impression: 1. ICA/CCA ratios another Doppler evidence does not demonstrate evidence of hemodynamic significant stenosis. 2. High resistive waveforms of the left internal carotid artery of indeterminate significance. 3. Antegrade vertebral flow on the right; the left is not evaluated. Recommendation: CT angiography of the neck. History of Present Illness HPI: Patient is a 86 yr old male who was brought to the emergency room today for acute evaluation of altered mentation. Patient has a known history of significant dementia. However, he is does reside at home with his . His reported that he started to become increasingly confused yesterday morning at approximately 3 a.m. This confusion continued into today, at which time she contacted her children further assistance. Unable to get patient to obey commands or stand, so they contacted EMS and patient was brought to the emergency room for further evaluation and treatment. Basic laboratory studies were obtained as patient's was concerned about a possible fever. Patient's white count was found to be 11.7, hemoglobin 14.4, hematocrit 44.8, platelet count 181, neutrophils 76%. Chemistry panel reviewed. Sodium is elevated at 147 , potassium 4.5, BUN 24, creatinine 1.8, glucose 149. Total bilirubin 1.9. Troponin 0.072, venous lactate 1.2, pro calcitonin 0.21. A catheterized urine sample was obtained showing 1+ protein, 3+ blood, 20-30 RBCs with trace bacteria. Max temperature in the emergency room was 100.1, heart rate in the 60s. Patient has been hypertensive, 170s-190s systolic. A chest x-ray was obtained. No acute cardiopulmonary findings. Initially a CT scan of the brain is obtained that does reveal encephalomalacia in the right occipital lobe, likely chronic from prior ischemic event. Questionable area in the right MCA that his concern for thrombus. An MRI of the brain was then obtained that did reveal a large area of restricted diffusion in the right MCA, likely representing an acute infarct. There are also multiple small areas of acute infarcts. Given acute mental status, accompanied with weakness and findings of cerebral infarct. The hospitalist services were contacted and accepted patient for outpatient admission for further evaluation and treatment. It is expected that his stay will be less than 2 overnights. Patient is seen while in the emergency room with and daughters at his bedside. He is living with his eyes closed. He will answer verbally. When called by name. He will also answer questions with yes and no or I don't know however, will not follow specific commands. When asked to open his eyes. He states "no". It is difficult evaluate if this is acute altered mentation versus chronic dementia. Just in great detail with family at the bedside regarding their wishes for ongoing care. They all verbalized patient is a do not resuscitate. Discussed plan of care. Did discuss events or activities with family and they wish for patient to be a do not resuscitate For complete details of the H&P refer to that document. Objective Vital signs: Temperature 96.9 F 11/30/16 08:38 Pulse Rate 66 11/30/16 08:38 Respiratory Rate 16 11/30/16 08:38 Blood Pressure 157/78 H 11/30/16 08:38 Pulse Oximetry 96 11/30/16 08:38 Oxygen Delivery Method Room Air Weight: 67.9 kg Hospital Course This is a general summary of the patient's hospital course. For more details refer to the complete medical record. 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 Altered mentation Hypernatremia Mild leukocytosis Elevated bilirubin Hypertension Type II diabetes History of CVA Cataracts Urinary incontinence Plan Patient to outpatient observation under the care of Dr. Shay for acute CVA and altered mentation. Place consultation with speech therapy to evaluate swallow to rule out dysphasia. Consultation for PT and OT to evaluate patients strength, weakness and deficits. Patient does reside at home and normally walks with a walker. Mild leukocytosis. No evidence of urinary tract infection or pneumonia. Will continue to monitor for evidence of acute process. Leukocytosis may be stress- induced. Noted creatinine to be 1.8, however, this does appear to be chronic. Last creatinine from 2016 was 1.8 Will give 1/2 NS at 100 ml/hr for gentle hydration. Did discuss with patient's family. Patient may require further rehabilitation including shelter, IRU or [place] [facility] placement. Depending on his ongoing deficits. Family does verify again, the patient is a do not resuscitate and this order is written. At time of discharge medical care will return to primary care provider, Dr. Lebron. 11/24/16 Blood pressure remains mildly elevated in the 170's. Generally goal is to keep above 150. Will discuss with attending regarding adding Norvasc or increasing current regimen Blood cultures remain negative. Mild leukocytosis without any SIRS criteria. Awaiting for evaluation with therapy. Concerned that patient will not be able to return home Consult placed to IRU. Otherwise may need to consider [place] [facility] or [facility] placement. 11/25/2016 - Dr Monreal I talked to the patient's and one of his daughters here in the hospital and spoke to another daughter by phone. I updated them on the patient's condition. I discussed current options for workup of his stroke. They're not wanting aggressive care but are in agreement with carotid Dopplers and echocardiogram. We'll start aspirin and Lipitor. The patient apparently had been on warfarin in the past but it was discontinued sometime last year. He may be a candidate for resuming warfarin for his acute embolic appearing stroke. Will await echocardiogram and carotid Dopplers. Usually one would wait at least 10 days to start Coumadin after a large stroke if it is indicated. My other concern is that the patient's by mouth intake is very poor and he is requiring IV fluids for hydration. Family would like to continue with IV fluids while we continue supportive care and try to encourage by mouth intake. If over the next couple of days oral intake is not improving then we will need to discuss further options. Monitor on telemetry. EDITH Damon. It appears this was placed in the emergency room. I cannot find any notes indicating urinary retention. We'll check a CBC and basic metabolic profile today and tomorrow. Neuro checks every 8 hours Patient was reportedly not a candidate for inpatient rehabilitation. Family would like him to go to shelter if he improves over the next couple of days. Greater than 1 hour of time spent seeing and evaluating the patient, reviewing the chart, talking with family and coordinating the care plan. 11/26/16 - Rah Regarding acute bilateral strokes, possibly embolic we'll continue on aspirin and statin for now. Echocardiogram is pending. Family does not want to pursue abnormalities seen on carotid Dopplers at this time. Regarding altered mental status, family would like to continue supportive care including IV fluids at this time and see if the patient improves. Regarding low-grade fever and elevated white count, uncertain if he has an infection versus aspiration or atelectasis contributing to his fever. Blood cultures were repeated and Rocephin initiated empirically. With the patient's loud cardiac murmur and low-grade fever and possible embolic stroke, this is somewhat concerning for endocarditis. We'll check a CBC and basic metabolic profile again tomorrow. 11/27/16 - Monreal Regarding acute bilateral strokes, possibly embolic we'll continue on aspirin and statin for now. Echocardiogram did not show any significant abnormalities. Family does not want to pursue abnormalities seen on carotid Dopplers at this time. Continue supportive care for stroke. 11/28/16--[place] Regarding acute bilateral strokes, possibly embolic we'll continue on aspirin and statin for now. Echocardiogram did not show any significant abnormalities. Risk of hemorrhagic conversion and some small component of that on imaging, hold any lovenox or other AC at this time. Family does not want to pursue abnormalities seen on carotid Dopplers at this time. Will discuss further if clinically improving. Continue supportive care for stroke. Will stop telemetry and continuous 02 at this point as it is making him more agitated. We'll check a CBC and renal panel tomorrow for surveillance. Neuro checks every 8 hours 11/29/16--[place] Not much change today, more combative at times, refusing po nutrition and all medications. IV line removed yesterday by patient and attempting to replace today due to need for IVF support; Na increased to 150. Regarding acute bilateral strokes, possibly embolic we'll continue on aspirin and statin for now. Echocardiogram did not show any significant abnormalities. Risk of hemorrhagic conversion and some small component of that on imaging, hold any lovenox or other AC at this time. Family does not want to pursue abnormalities seen on carotid Dopplers at this time. Will discuss further if clinically improving but thus far not much improvement outside of being more alert. Will change losartan dosing to 50 mg daily as his states that is his home dose. Continue supportive care for stroke. Will continue off of telemetry and continuous 02 at this point as it is making him more agitated. We'll check a CBC and renal panel tomorrow for surveillance. Will replace IV line today as Na is up to 150, taking in little po. Start D5at 50 cc/hour. When more family available will discuss further re: goals of care. Appropriate for hospice involvement at this point if no further interventions desired. 11/30/16 - Britany Sodium improved to 143. Oral drive still diminished. Does work with therapy. Will discharge to [facility] for continuation or therapy: PT/OT/Speech. Continue with current medications. Stop IVF. F/U with Dr Reid in 1 week. Would consider hospice care if patient not making meaningful gains with therapy. Discharge Plan - Med Rec/Dispo Referrals/Follow Up: Imtiaz Lebron MD [Family Provider] - 1 Week (Hospital follow up. ) Quynh Instructions: Stroke (GEN) Prescriptions: New Acetaminophen [Tylenol] 1,000 mg PO Q5H PRN tablet PRN Reason: Discomfort Acetaminophen Supp [Tylenol Supp] 650 mg TX Q5H PRN supp PRN Reason: Pain Atorvastatin [Lipitor] 40 mg PO HS tablet Metoprolol Tartrate [Lopressor] 100 mg PO BIDWM tablet Aspirin [ASA] 325 mg PO DAILY tablet Losartan [Cozaar] 50 mg PO DAILY tablet Continue Fluorouracil 5% Cream [Efudex 5% Cream] 1 applic TOP BID #40 gm Discontinued Losartan Potassium [Cozaar] 100 mg PO DAILY #0 Metoprolol Succinate 200 mg PO DAILY #0 Discharge Instructions/Outpatient Orders: Final Provider Discharge Instructions Location: Determined By Patient - Disposition 03 To [facility] Not [facility] (SNF) - Attestation Attestation Narrative: 11/30/16 15:51 I have independently interviewed and examined patient prior to discharge. See my progress note from today for details.
[2016-11-30] MEDS: CEFTRIAXONE 1 G in NS 100 ML IV SCH (14:20)
--- NOTE | 2016-11-30 14:30 | Extended Care Facility Orders ---
Admission Orders Admit to:: Detention Allergies/Adverse Reactions: Allergies No Known Allergies Allergy (Unknown, Unverified 11/23/16 09:04) Admitting Diagnosis: Acute CVA, AMS Admitting Physician: Georgina Monreal MD Attending Physician: Dr Lebron Code Status: Do Not Resuscitate Anticiapted Length of Stay: 30 days or less Rehab Potential: poor Rehab Prognosis: poor Diet: Pureed diet with honey/syrup thick liquids. House nutritional supplement TID. No added salt. No concentrated sweets. May use Facility Protocol or Standing Orders: Yes May have flu vaccine: Yes Evaluations/Treatment: Speech, PT, OT Detention Certification: I certify that SNF services are required to be given on an Inpatient basis because of the patients need for fci care on a continuing basis for the condition(s) for which he/she received inpatient hospital services prior to his/her transfer to the SNF. SNF inpatient care is necessary for the following reasons Indication for Detention: Neuro Assessment (Post stroke care and rehabilitation ), Other (Skilled PT/OT/Speech for post stroke care. ) - Additional Information In Event of Arrest: Do Not Start CPR Resident is Aware of Diagnosis: No (Dementia limits. ) Referrals: Imtiaz Lebron MD [Family Provider] - 1 Week (Hospital follow up. )
== END 2016-11-30 16:40 | DRG 65 ==
LOC: ED 09:01 → MED 09:01
PROVIDERS: ADMIT Internal Medicine Infectious Disease; ATTEND Internal Medicine